=== PATIENT | female | born 1955 | race Caucasian/White ===

== ENCOUNTER 2023-03-19 10:15 | Outpatient (OUT) | payer MEDICARE, OTHER, SELFPAY ==
[2023-03-19 10:36] LABS: Basophils Percent Auto 0.4 % (0.2-2.0); Eosinophils Absolute Auto 0.1 10^3/uL (0.0-0.7); Eosinophils Percent Auto 1.3 % (0.9-7.0); Hematocrit 39.8 % (36.0-48.0); Hemoglobin 13.2 g/dL (12.0-16.0); Immature Granulocytes Abs Auto 0.01 10^3/uL (0.00-0.03); Immature Granulocytes Pct Auto 0.2 % (0.0-0.5); Lymphocytes Absolute Auto 1.3 10^3/uL (1.2-3.8); Lymphocytes Percent Auto 24.6 % (20.5-60.0); Mean Corpuscular HGB Conc 33.2 g/dL (29.9-35.2); Mean Corpuscular Hemoglobin 29.9 pg (26.7-34.0); Mean Corpuscular Volume 90.2 fL (81.0-99.0); Monocytes Absolute Auto 0.5 10^3/uL (0.3-0.8); Monocytes Percent Auto 8.5 % (1.7-12.0); Neutrophils Absolute Auto 3.5 10^3/uL (1.4-6.5); Platelet Count 229 10^3/uL (150-450); Red Blood Count 4.41 10^6/uL (4.20-5.40); White Blood Count 5.4 10^3/uL (4.0-11.0)
[2023-03-19 11:19] LABS: Alanine Aminotransferase 27 U/L (14-59); Anion Gap 11.8; BUN Creatinine Ratio 31.7; Calcium 9.4 mg/dL (8.5-10.1); Carbon Dioxide 29.2 mmol/L (21.0-32.0); Chloride 102 mmol/L (98-107); Chol HDL Ratio 2.8; Cholesterol 184 mg/dL (<=200); Estimated GFR (African America >60 (>=60); Estimated GFR (Non-African Ame >60 (>=60); Glucose 96 mg/dL (74-106); HDL Cholesterol 66 mg/dL (40-60); Sodium 139 mmol/L (136-145); Triglycerides 91 mg/dL (<=150); VLDL CHOLESTEROL 18.2 mg/dL
== END 2023-03-19 10:16 ==
LOC: LAB 10:20
PROVIDERS: PCP Internal Medicine; Visit Provider Internal Medicine
DX: E78.5 Hyperlipidemia, unspecified (principal); I10 Essential (primary) hypertension; Z79.899 Other long term (current) drug therapy
CPT/HCPCS: 36415; 80048; 80061; 84460; 85025

== ENCOUNTER 2024-03-20 11:03 | Outpatient (OUT) | payer MEDICARE, OTHER, SELFPAY ==
[2024-03-20 11:45] LABS: Basophils Percent Auto 0.7 % (0.2-2.0); Eosinophils Absolute Auto 0.1 10^3/uL (0.0-0.7); Eosinophils Percent Auto 0.9 % (0.9-7.0); Hematocrit 37.8 % (36.0-48.0); Hemoglobin 12.3 g/dL (12.0-16.0); Immature Granulocytes Abs Auto 0.01 10^3/uL (0.00-0.03); Immature Granulocytes Pct Auto 0.2 % (0.0-0.5); Lymphocytes Absolute Auto 1.6 10^3/uL (1.2-3.8); Lymphocytes Percent Auto 27.4 % (20.5-60.0); Mean Corpuscular HGB Conc 32.5 g/dL (29.9-35.2); Mean Corpuscular Hemoglobin 28.9 pg (26.7-34.0); Mean Corpuscular Volume 88.7 fL (81.0-99.0); Mean Platelet Volume 9.4 fL (9.5-13.5); Monocytes Absolute Auto 0.5 10^3/uL (0.3-0.8); Monocytes Percent Auto 7.9 % (1.7-12.0); Neutrophils Absolute Auto 3.6 10^3/uL (1.4-6.5); Neutrophils Percent Auto 62.9 % (43.0-75.0); Platelet Count 242 10^3/uL (150-450); Red Blood Count 4.26 10^6/uL (4.20-5.40); Red Cell Distribution Width 13.2 % (11.0-15.0); White Blood Count 5.7 10^3/uL (4.0-11.0)
[2024-03-20 12:16] LABS: Alanine Aminotransferase 22 U/L (14-59); Albumin Globulin Ratio 1.2; Albumin Level 3.9 g/dL (3.4-5.0); Alkaline Phosphatase 57 U/L (46-116); Anion Gap 14.5; Aspartate Amino Transferase 22 U/L (15-37); BUN Creatinine Ratio 21.7; Bilirubin Total 0.7 mg/dL (0.2-1.0); Carbon Dioxide 27.3 mmol/L (21.0-32.0); Chloride 104 mmol/L (98-107); Chol HDL Ratio 3.1; Cholesterol 209 mg/dL (<=200); Estimated GFR (African America >60 (>=60); Estimated GFR (Non-African Ame >60 (>=60); Globulin 3.3 g/dL; Glucose 91 mg/dL (74-106); HDL Cholesterol 67 mg/dL (40-60); Potassium 3.8 mmol/L (3.5-5.1); Sodium 142 mmol/L (136-145); Total Protein 7.2 g/dL (6.4-8.2); Triglycerides 66 mg/dL (<=150); VLDL CHOLESTEROL 13.2 mg/dL
== END 2024-03-20 11:04 | disposition home or self-care (01) ==
LOC: LAB 11:06
PROVIDERS: PCP Internal Medicine; Visit Provider Internal Medicine
DX: E78.00 Pure hypercholesterolemia, unspecified (principal); I10 Essential (primary) hypertension; I87.2 Venous insufficiency (chronic) (peripheral)
CPT/HCPCS: 36415; 80053; 80061; 85025

== ENCOUNTER 2025-03-23 09:17 | Outpatient (OUT) | payer MEDICARE, OTHER, SELFPAY ==
--- OUTSIDE RECORDS SUMMARY | 2025-03-23 09:27 | XMS_ITS | Clinical Summary ---
Author Organization [facility] Address [address] [place] [address] Care Team Providers Care Register Of Deeds Name Role Phone Unavailable Primary Care Provider Unavailabl e Social History Tobacco Use Types Packs/Day Years Used Date Smoking Tobacco: Never Assessed Comments Unknown Sex and Gender Information Value Date Recorded Sex Assigned at Not on file Legal Sex Female 6:52 PM EDT Gender Identity Female 12/13/2022 6:52 PM EDT Sexual Orientation Not on file Last Filed Vital Signs Vital Sign Reading Time Taken Comments Blood Pressure 124/80 10/15/2020 12:00 PM EST Pulse - - Temperature - - Respiratory Rate - - Oxygen Saturation - - Inhaled Oxygen Concentration - - Weight 68 kg (150 lb) 10/15/2020 12:00 PM EST Height 167.6 cm (5' 6 ) 10/15/2020 12:00 PM EST Body Mass Index 24.21 10/15/2020 12:00 PM EST Plan of Treatment Not on file Insurance MEDICARE
--- OUTSIDE RECORDS SUMMARY | 2025-03-23 09:43 | XMS_ITS | CCD ---
Author Organization [facility] Team Providers Care Hadoop Application Developer Name Role Phone JAMES, DR KENNEY Primary Care Unavailable BALL, DR KENNEY Admitting Unavailable BALL, DR KENNEY Attending Unavailable BALL, DR KENNEY Consulting Unavailable BALL, DR KENNEY Primary Care Unavailable BALL, DR KENNEY Admitting Unavailable BALL, DR KENNEY Attending Unavailable BALL, DR KENNEY Consulting Unavailable ROSS, RAULITO Consulting Unavailable ROSS, RAULITO Admitting Unavailable BALL, DR KENNEY Primary Care Unavailable ROSS, RAULITO Attending Unavailable STUART, DR HUNTER Attending Unavailable STUART, DR HUNTER Admitting Unavailable BEERMAN, DR HUNTER Consulting Unavailable BALL, DR KENNEY Primary Care Unavailable CHUNCURTIS Consulting Unavailable STUART, DR HUNTER Admitting Unavailable BEERIAN, DR HUNTER Attending Unavailable BEERMAN, DR HUNTER Consulting Unavailable BALL, DR KENNEY Primary Care Unavailable BALL, DR KENNEY Admitting Unavailable BALL, DR KENNEY Attending Unavailable BALL, DR KENNEY Consulting Unavailable BALL, DR KENNEY Primary Care Unavailable DO Joel Musa Primary Care Provider DO Joel Musa Referring Provider Self, Referral Attending Provider Unavailable Joel Musa Unavailable NILL, Kirk R Referring Unavailable NILL, Kirk Cox Attending Unavailable NILL, Kirk Cox Admitting Unavailable NILL, Kirk Cox Attending Unavailable JOEL MUSA Referring Unavailable JOEL MUSA Primary Care Physician NILL, Kirk R Admitting Unavailable NILL, Kirk R Referring Unavailable NILL, Kirk R Attending Unavailable NILL, Kirk R Admitting Unavailable NILL, Kirk R Referring Unavailable NILL, Kirk Cox Attending Unavailable NILL, Kirk oCx Attending Unavailable Joel Musa DO Primary Care Provider Joel Musa DO Referring Provider Self, Referral Attending Provider Unavailable Joel Musa Referring Unavailable Joel Musa Primary Care Unavailable Self, Referral Attending Unavailable Self, Referral Admitting Unavailable Allergies Allergy Classification Reported Allergen(s) Allergy Type Date of Onset Reaction(s) Facility (1 source) patient allergy list reviewed by nurse or physicia Propensity to adverse reactions Comment:[employer] Other (2 sources) No Known Medication Allergies; Translations: [No Known Medication Allergies] Propensity to adverse reactions (disorder) [facility] Repository Medications Current Medications Medication Drug Class(es) Dates Sig (Normalized) Sig (Original) azithromycin 250 mg oral tablet (1 source) Macrolide Antimicrobial Start: 08-04-2024 Azithromycin 250 mg tablet Active 250 MG PO .COMPLEX 6 August 04, 2024 1:00am 2 tabs on first day followed by 1 tab on days 2-5 Calcium (3 sources) Phosphate Binder, Calcium Start: 10-29-2024 take 1 tablet by mouth once daily Calcium 600 D Tab 1 tab(s), Oral, Daily, Refill(s) 0, Prophylaxis Start Date: 10/29/24 Status: Ordered Compression stockings, 30-40mmHg, thigh 30-40mmHg (3 sources) Compression stockings, 30-40mmHg, thigh 30-40mmHg externally daily as directed Active lisinopril 5 mg oral tablet (16 sources) Angiotensin Converting Enzyme Inhibitor Start: 05-09-2024 take 1 tablet by mouth once daily Lisinopril 5 mg tablet Active 0 .ROUTE .COMPLEX May 09, 2024 8:56am TAKE 1 TABLET BY MOUTH EVERY DAY Start: 08-16-2020 End: 05-09-2024 take 1 tablet by mouth once daily Lisinopril 5 mg tablet Discontinued 5 MG PO Daily March 20, 2024 10:16am May 09, 2024 8:56am pravastatin sodium 40 mg oral tablet (16 sources) HMG-CoA Reductase Inhibitor Start: 04-28-2024 take 1 tablet by mouth once daily in the evening Pravastatin 40 mg tablet Active 0 .ROUTE .COMPLEX April 28, 2024 9:51am TAKE 1 TABLET BY MOUTH EVERY DAY IN THE EVENING Start: 08-16-2020 End: 04-28-2024 take 1 tablet by mouth once daily Pravastatin 40 mg tablet Discontinued 40 MG PO Daily March 20, 2024 10:17am April 28, 2024 9:51am traMADol hydrochloride 50 mg oral tablet (1 source) Opioid Agonist Start: 11-10-2024 End: 11-15-2024 traMADOL 50 mg Tab 50 mg = 1 tab(s), Oral, q6hr, PRN Pain, not to exceed 400 mg/day take with food or milk, # 10 tab(s), Refills(s) 0, Pharmacy: [facility]/pharmacy #[id number], 167, cm, 10/29/24 9:37:00 EST, Height/Length Dosing, 69, kg, 10/29/24 9:37:00 EST, Weight Dosing Start Date: 11/10/24 Stop Date: 11/15/24 Status: Ordered Vitamin C 500 mg Tab (3 sources) Start: 10-29-2024 take 1 tablet by mouth once daily Vitamin C 500 mg Tab 500 mg = 1 tab(s), Oral, Daily, Refills(s) 0, Prophylaxis Start Date: 10/29/24 Status: Ordered Completed/Discontinued Medications Medication Drug Class(es) Dates Sig (Normalized) Sig (Original) amoxicillin 875 mg / clavulanate 125 mg oral tablet (4 sources) Penicillin-class Antibacterial Start: 10-16-2020 End: 03-20-2024 take 1 tablet by mouth twice daily Amoxicillin-Pot Clavulanate 875-125 mg tablet Discontinued 1 TAB PO Twice daily October 16, 2020 1:00am March 20, 2024 10:16am Problems Active Problems Problem Classification Problem Date Documented Date Episodic/Chronic Anal and rectal conditions (4 sources) Anal polyp 08-18-2020 Episodic Diseases of white blood cells (1 source) Leukopenia; Translations: [Leukocytopenia, unspecified] Onset: 04-26-2015 Chronic Disorders of lipid metabolism (20 sources) Familial hypercholesterolemia; Translations: [Hyperlipidemia, unspecified] Onset: 10-01-1959 Chronic E Codes: Natural/environment (1 source) Cat bite - wound; Translations: [Bitten by cat, initial encounter] 10-16-2020 Episodic Essential hypertension (20 sources) Essential (primary) hypertension; Translations: [Essential hypertension] Onset: 07-22-2014 Chronic Headache; including migraine (5 sources) Migraine without aura, not refractory ; Translations: [Migraine, unspecified, not intractable, without status migrainosus] 09-13-2020 Chronic Hemorrhoids (5 sources) Residual hemorrhoidal skin tags; Translations: [Residual hemorrhoidal skin tags] 08-16-2020 Episodic Immunizations and screening for infectious disease (5 sources) Encounter for immunization; Translations: [Vaccination given] Onset: 08-02-2021 Episodic Menopausal disorders (5 sources) Primary ovarian failure; Translations: [Other primary ovarian failure] 08-16-2020 Chronic Osteoarthritis (2 sources) Osteoarthritis of knee; Translations: [Unilateral primary osteoarthritis, unspecified knee] Onset: 01-21-2015 Chronic Other aftercare (2 sources) Other watermelon inspector (current) drug therapy; Translations: [OTH BODY BUILDER APPRENTICE CURRENT DRUG THERAPY] Onset: 02-22-2022 Episodic Other aftercare (1 source) Long-term current use of drug therapy; Translations: [Other residential (current) drug therapy] Episodic Other and unspecified benign neoplasm (3 sources) Lipoma of skin and subcutaneous tissue of trunk; Translations: [Benign lipomatous neoplasm of skin and subcutaneous tissue of trunk] Onset: 10-28-2024 Episodic Other and unspecified benign neoplasm (4 sources) Lipoma of back 10-13-2020 Episodic Other diseases of veins and lymphatics (9 sources) Peripheral venous insufficiency; Translations: [Venous insufficiency (chronic) (peripheral)] Resolved: 02-03-2020 08-16-2020 Episodic Other diseases of veins and lymphatics (2 sources) Venous insufficiency (chronic) (peripheral); Translations: [Venous (peripheral) insufficiency, unspecified] Episodic Other diseases of veins and lymphatics (3 sources) Venous insufficiency of leg; Translations: [Venous insufficiency (chronic) (peripheral)] 03-18-2024 Episodic Other injuries and conditions due to external causes (1 source) History of fall; Translations: [History of falling] Episodic Other nervous system disorders (1 source) Hereditary peripheral neuropathy; Translations: [Unspecified hereditary and idiopathic peripheral neuropathy] Onset: 07-27-2015 Chronic Other nutritional; endocrine; and metabolic disorders (1 source) Overweight; Translations: [Overweight] Episodic Other screening for suspected conditions (not mental disorders or infectious disease) (10 sources) Encounter for screening for malignant neoplasm of colon; Translations: [Patient encounter status] Onset: 03-23-2021 Episodic Other skin disorders (4 sources) Skin tag 10-13-2020 Episodic Residual codes; unclassified (1 source) Family history of ischemic heart disease; Translations: [Family history of ischemic heart disease and other diseases of the circulatory system] Episodic Spondylosis; intervertebral disc disorders; other back problems (6 sources) Cervical spondylosis without myelopathy; Translations: [Cervical Spondylosis Without Myelopathy] Onset: 06-16-2015 08-16-2020 Chronic Substance-related disorders (5 sources) Tobacco dependence in remission; Translations: [Nicotine dependence, cigarettes, in remission] Chronic Unclassified (4 sources) CONTACT W/AND (SUSP) EXPOS COVID-19; Translations: [CONTACT W/AND (SUSP) EXPOS COVID-19] Onset: 03-25-2021 Varicose veins of lower extremity (8 sources) Pain co-occurrent and due to varicose veins of bilateral legs; Translations: [Varicose veins of bilateral lower extremities with pain] 08-16-2020 Episodic Viral infection (2 sources) COVID-19; Translations: [Disease caused by 2019-nCoV] Onset: 10-04-2021 Past or Other Problems Problem Classification Problem Date Documented Date Episodic/Chronic Acute bronchitis (1 source) Acute bronchitis; Translations: [Acute bronchitis, unspecified] Onset: 12-15-2015 Episodic Biliary tract disease (1 source) Disorder of gallbladder; Translations: [Other specified disorder of gallbladder] Onset: 05-26-2013 Episodic Conditions associated with dizziness or vertigo (1 source) Benign paroxysmal positional vertigo; Translations: [Benign paroxysmal positional vertigo] Onset: 03-25-2019 Episodic Malaise and fatigue (2 sources) Malaise and fatigue; Translations: [Other malaise and fatigue] Onset: 01-20-2014 Episodic Open wounds of extremities (2 sources) Open bite wound of skin; Translations: [Open bite of unspecified finger without damage to nail, subsequent encounter] Resolved: 02-10-2021 Episodic Other and unspecified benign neoplasm (1 source) Personal history of colonic polyps; Translations: [PERSONAL HISTORY OF COLONIC POLYPS] Onset: 03-28-2021 Episodic Other liver diseases (1 source) Elevated levels of transaminase & lactic acid dehydrogenase; Translations: [Nonspecific elevation of levels of transaminase or lactic acid dehydrogenase (LDH)] Onset: 04-26-2015 Episodic Other nervous system disorders (1 source) Altered sensation of skin; Translations: [Disturbance of skin sensation] Onset: 01-20-2014 Episodic Residual codes; unclassified (1 source) Family history of breast cancer; Translations: [Family history of malignant neoplasm of breast] Onset: 07-22-2014 Episodic Screening and history of mental health and substance abuse codes (1 source) Personal history of nicotine dependence; Translations: [PERSONAL HISTORY OF NICOTINE DEPEND] Onset: 03-28-2021 Episodic Spondylosis; intervertebral disc disorders; other back problems (1 source) Neck pain; Translations: [Cervicalgia] Onset: 06-16-2015 Episodic Sprains and strains (1 source) Strain of muscle and tendon of back wall of thorax, initial encounter; Translations: [Strain of muscle and tendon of back wall of thorax, initial encounter] Onset: 03-25-2019 Resolved: 02-03-2020 Episodic Unclassified (1 source) CONTACT W/AND (SUSP) EXPOS COVID-19; Translations: [CONTACT W/AND (SUSP) EXPOS COVID-19] Onset: 09-28-2021 Unclassified (1 source) Long-term current use of drug therapy; Translations: [Long-term (current) use of other medications] Onset: 10-01-1959 Results Test Name Value Interpretation Reference Range Facility MM screening mammo BI w/CADo n 12-11-2024 MM screening mammo BI w/CAD [facility] [address] [place] [address] Mammography Report Signed Patient: Candido Hdez MR#: [id number] : 1955 Acct:[id number] Age/Sex: 69 / F Adm Date: 12/11/24 Loc: [place] Room: Type: [facility] Attending Dr: Referral Self Ordering Provider: SELF,REFERRAL Date of Service: 12/11/24 Procedure(s): MM screening mammo BI w/CAD Accession Number(s): ([id number]) MM/MM screening mammo BI w/CAD: SCREENING Copies to: DO WILNER Escoto,REFERRAL CLINICAL DATA: Screening for malignancy. SCREENING MAMMOGRAM - FULL FIELD DIGITAL WITH TOMOSYNTHESIS AND CAD COMPARISON:Mammogram s dating back to 2020. Tomosynthesis craniocaudal and mediolateral oblique views of both breasts were obtained using low- dose digital technique. This examination was reviewed with the aid of CAD. FINDINGS: The breast tissue is composed of scattered fibroglandular densities. There are no dominant masses, typically malignant calcifications or architectural distortion. There has been no significant interval change. MM/MM screening mammo BI w/CAD IMPRESSION: NO MAMMOGRAPHIC EVIDENCE OF MALIGNANCY. ROUTINE FOLLOW-UP IS RECOMMENDED IN ONE YEAR. RESULT CODE: 1 Negative DENSITY CODE: 2 (approximately 25-50% glandular) There are scattered areas of fibroglandular density. FOLLOW UP: 1YR The false-negative rate of mammography is approximately 10-percent. Management of a palpable abnormality must be based on clinical grounds. Patient was entered into a reminder system with a target due date for the next mammogram. Impression dictated by: Marco Szymanski Jr..OJessie12/11/2024 3:27 PM Dictation Location: [facility] Dictated By: Cole Cedillo Jr, DO 12/11/241526 Signed By: 12/11/24 152 Normal [facility] Mammography reportOrdered By : Cole Cedillo on 12-11-2024 Diagnostic imaging study [facility] [address] [place] [address] Mammography Report Signed Patient: Candido Hdez MR#: [id number] : 1955 Acct:[id number] Age/Sex: 69 / F Adm Date: 5 Loc: [place] Room: Type: [facility] Attending Dr: Referral Self Ordering Provider: SELF,REFERRAL Date of Service: 12/11/24 Procedure(s): MM screening mammo BI w/CAD Accession Number(s): ([id number]) MM/MM screening mammo BI w/CAD: SCREENING Copies to: Joel Musa DO SELF,REFERRAL ~ CLINICAL DATA: Screening for malignancy. SCREENING MAMMOGRAM - FULL FIELD DIGITAL WITH TOMOSYNTHESIS AND CAD COMPARISON:Mammogram s dating back to 2020. Tomosynthesis craniocaudal and mediolateral oblique views of both breasts were obtained using low-dose digital technique. This examination was reviewed with the aid of CAD. FINDINGS: The breast tissue is composed of scattered fibroglandular densities. There are no dominant masses, typically malignant calcifications or architectural distortion. There has been no significant interval change. MM/MM screening mammo BI w/CAD IMPRESSION: NO MAMMOGRAPHIC EVIDENCE OF MALIGNANCY. ROUTINE FOLLOW-UP IS RECOMMENDED IN ONE YEAR. RESULT CODE: 1 Negative DENSITY CODE: 2 (approximately 25-50% glandular) There are scattered areas of fibroglandular density. FOLLOW UP: 1YR The false-negative rate of mammography is approximately 10-percent. Management of a palpable abnormality must be based on clinical grounds. Patient was entered into a reminder system with a target due date for the next mammogram. Impression dictated by: Cole Cedillo Jr., DJessieOJessie12/11/2024 3:27 PM Dictation Location: [facility] Dictated By: Cole Cedillo Jr, DO 12/11/24 152 Signed By: 12/11/24 152 [place] Ambulatory Visit Summaryon 0 11-19-2024 Ambulatory Visit Summary Ambulatory Visit Summary CANDIDO HDEZ :1955 Visit Date:11/19/2024 Ambulatory Visit Instructions Your Diagnosis Lipoma of back Your Care Team Attending Physician - Kirk CHAVEZ MD Primary Care Physician - JOEL MUSA DO This Is Your Medications List Contact prescribing physician if questions or concerns ascorbic acid (Vitamin C 500 mg Tab) calcium-vitamin D (Calcium 600 D Tab) lisinopril (lisinopril 5 mg Tab) pravastatin (pravastatin 40 mg Tab) Procedures Performed Excision of lipoma of back (11/10/2024), Polyp of anal verge (10/04/2020), Colonoscopy (04/05/2016), Appendectomy (1959), Endovenous laser ablation of varicose vein, LEXI BSO - Total abdominal hysterectomy and bilateral salpingo-oophorectom y. What to do next You Need to Schedule the Following Appointments Follow Up with GILLES VERNON, RONNI Egan When: Only if needed Where: [address] [place] [address]- Medications What How Much When Instructions Unchanged ascorbic acid (Vitamin C 500 mg Tab) 1 Tablets By Mouth Every day Contact prescribing physician if questions or concerns Unchanged calcium-vitamin D (Calcium 600 D Tab) 1 Tablets By Mouth Every day Contact prescribing physician if questions or concerns Unchanged lisinopril (lisinopril 5 mg Tab) 1 Tablets By Mouth Every day Contact prescribing physician if questions or concerns Unchanged pravastatin (pravastatin 40 mg Tab) 1 Tablets By Mouth Every day Contact prescribing physician if questions or concerns Allergies No Known Allergies No Known Medication Allergies Problems Ongoing - Any problem that you are currently receiving treatment for. Anal polyp Anorectal skin tags Chronic venous insufficiency Estrogen deficiency External hemorrhoids Hypercholesteremia Hyperlipidemia type II Hypertension Lipoma of back Spondylosis, cervical Varicose veins without complication Historical - Any problem that you are no longer receiving treatment for. HTN (hypertension) Migraine headache Patient Survey You may receive a survey via text or e-mail asking about your office visit. Please share your experience with us by completing your survey. We appreciate your feedback and thank you for choosing us for your care. Normal [facility] General Surgery Office/Clini c Noteon 11-19-2024 General Surgery Office/Clinic Note General Surgery Office/Clinic Note Chief Complaint post operative follow up HPI Staff 9 day post operative follow up post excisional biopsy right upper back lipoma. Reports minimal intermittent discomfort, intermittent use of Ibuprofen. Denies bleeding or drainage. History of Present Illness 9 days s/p excisional biopsy of right upper back lipoma, pathology consistent with benign lipoma; doing well, denies pain or drainage, no pain medications. Review of Systems PHQ Score Initial Depression Screen Score: 0 SCORE ROS - Provider Constitutional: no fever, no sweats, no weight loss. Eyes: no glasses, no blurred vision, no visual loss. ENMT: no dentures, no hoarseness, no swallowing difficulties, no hearing loss, no ear infection(s), no nose bleeds. Cardiovascular: normal blood pressure, no chest pain, regular heartbeat, no heart murmur. Respiratory: no shortness of breath, no cough, no asthma, no wheezing. Gastrointestinal: no nausea, no vomiting, no diarrhea, no constipation, no blood in stool, no change in bowel habits, no abdominal pain, no hepatitis. Genitourinary: no kidney stones, no urine infection, no dysuria. Musculoskeletal: no pain, no weakness. Skin: no changing moles, no rash, no skin lumps. Neurologic: no seizures, no epilepsy, no headache. Psychiatric: no emotional or psychiatric problem. Heme/Lymph: no bleeding problems, no anemia, no blood clots, no transfusions. Allergy/Immunologic: no swollen lymph nodes/glands, no IV drug abuse. Other: Additional ROS info: Except as noted in the above Review of Systems and in the History of Present Illness, all other systems have been reviewed and are negative or noncontributory. Physical Exam skin: incision healing well, glue/steri strips intact; no drainage; no fluctuance or ecchymosis; no erythema. Assessment/Plan 1. Lipoma of back (D17.1: Benign lipomatous neoplasm of skin and subcutaneous tissue of trunk) doing well; call with problems/questions. Follow-up With When Contact Information GILLES VERNON, Kirk Cox, RONNI Only if needed [address] [place] [address]- Additional Instructions: Problem List/Past Medical History Ongoing Anal polyp Anorectal skin tags Chronic venous insufficiency Estrogen deficiency External hemorrhoids Hypercholesteremia Hyperlipidemia type II Hypertension Lipoma of back Spondylosis, cervical Varicose veins without complication Historical HTN (hypertension) Migraine headache Procedure/Surgical History Excision of lipoma of back (11/10/2024), Polyp of anal verge (10/04/2020), Colonoscopy (04/05/2016), Appendectomy (1959), Endovenous laser ablation of varicose vein, LEXI BSO - Total abdominal hysterectomy and bilateral salpingo-oophorectom y. Medications Calcium 600 D Tab, 1 tab(s), Oral, Daily lisinopril 5 mg Tab, 5 mg= 1 tab(s), Oral, Daily pravastatin 40 mg Tab, 40 mg= 1 tab(s), Oral, Daily Vitamin C 500 mg Tab, 500 mg= 1 tab(s), Oral, Daily Allergies No Known Allergies No Known Medication Allergies Social History Alcohol - Low Risk, 10/04/2020 Current. Wine. 1-2 times per month., 10/23/2024 Substance Abuse - Denies Substance Abuse, 08/17/2020 Never., 10/23/2024 Tobacco - Denies Tobacco Use, 09/13/2020 Former smoker, quit more than 30 days ago Tobacco Use:. Never Smokeless Tobacco Use:. Cigarettes, 11/19/2024 Family History Hypertension: Father. Primary malignant neoplasm of female breast: Mother. Stroke: Mother. Immunizations Vaccine Date Status influenza virus vaccine, inactivated 09/04/2024 Recorded SARS-CoV-2 (COVID-19) mRNA BNT-162b2 vax 08/02/2021 Recorded SARS-CoV-2 (COVID-19) mRNA BNT-162b2 vax 12/21/2020 Recorded SARS-CoV-2 (COVID-19) mRNA BNT-162b2 vax 11/29/2020 Recorded Normal [facility] Comment on above: Result Comment: Elec tronically Signed By: GILLES VERNON, Kirk Cox\.br\Date and Time Signed: 11/19/24 14:33 EST Surgical Pathology Reporton 11-12-2024 Surgical Pathology Report [facility] [address] [place] [address]- Surgical Pathology Report Collected Date/Time: 11/10/2024 08:18 EST Pathologist: Babatunde VERNON PhD, Henrietta Arango Received Date/Time: 11/10/2024 10:21 EST GILLES VERNON, Kirk CHAVEZ MD, Kirk Paul Surgical Pathology Report - 11/12/2024 10:32 EST - Auth (Verified) Final Diagnosis RIGHT UPPER BACK LIPOMA, EXCISION: - MATURE ADIPOSE TISSUE CONSISTENT WITH LIPOMA. (Electronic Signature) Henrietta Fine MD PhD 11/12/2024 10:32 Clinical Information Right upper back lipoma Pre-Op Diagnosis: Right upper back lipoma Procedure: Right upper back lipoma excision Post-Op Diagnosis: Enlarging lipoma right upper back Specimen(s) Received Right upper back lipoma Gross Description Received in formalin labeled with patient name, number, and right upper back lipoma is a lobulated light yellow adipose tissue measuring 8 x 5 x 4 cm. Cross-section reveals a focal granular adipose tissue. Crusher And Blender Operator sections are submitted in three cassettes. () [facility] Microscopic Description Microscopic examination performed unless gross only specified. This report was transcribed using voice recognition technology and might contain unintended computerized low pressure boiler operator errors. Normal [facility] Comment on above: Performed By: #### [id number] #### [facility] Laboratory [address] [place] [id number] Main OR Intraoperative Recor don 11-11-2024 Main OR Intraoperative Record Main OR Intraoperative Record IntraOp Document Type FT Summary Primary Physician: Kirk CHAVEZ MD Finalized Date/Time: 11/11/24 14:42:51 Pt. Name: CANDIDO HDEZ Margarita/Sex: 1955 [address] [facility] Rec #: [id number] Physician: Kirk CHAVEZ MD [facility] #: [id number] Pt. Type: A Room/Bed: [place] [address] Admit/Disch: 11/10/24 06:02:04 - 11/10/24 10:20:00 Institution: Case Times FT Entry 1 Patient Times In Room 11/10/24 07:51:00 Out Room 11/10/24 08:49:00 Procedure Times Start 11/10/24 08:11:00 Stop 11/10/24 08:43:00 Anesthesia Times Start 11/10/24 07:51:00 Stop 11/10/24 08:49:00 Last Modified By: Lindsay Larkin RN 11/10/24 08:48:59 General Comments: 11/11/24 Chart opened to review and send charges [facility]FA Case Attendance FT Entry 1 Entry 2 Entry 3 Case Attendee Barron TIDWELL, Wilver CHAVEZ MD, Kirk Cannon CST, Claudia Way Role Performed Anesthesiologist Surgeon - Primary PHARMACY MESSENGER/SA Seat Nailer Time In 11/10/24 07:51:00 11/10/24 07:51:00 11/10/24 07:51:00 Time Out 11/10/24 08:49:00 11/10/24 08:49:00 11/10/24 08:49:00 Procedure CYST LESION REMOVAL CYST LESION REMOVAL CYST LESION REMOVAL GENERAL ANES(.) GENERAL ANES(.) GENERAL ANES(.) Comments DR. CAPPS SUPERVISING Last Modified By: Chaya RN, Lindsay Larkin RN, Lindsay Oconnor RN 11/10/24 08:49:01 11/10/24 08:49:01 11/10/24 08:49:01 Entry 4 Entry 5 Case Attendee Chaya GUPTA, Jade Joy Role Performed Detective Sergeant - Primary Scrub - Primary Time In 11/10/24 07:51:00 11/10/24 07:51:00 Time Out 11/10/24 08:49:00 11/10/24 08:49:00 Procedure CYST LESION REMOVAL CYST LESION REMOVAL GENERAL ANES(.) GENERAL ANES(.) Comments Last Modified By: Chaya RN, Lindsay Oconnor RN 11/10/24 08:49:01 11/10/24 08:49:01 Perioperative Protocols FT Pre-Care Text: Implements protective measures prior to operative or invasive procedure, confirms identity before the operative or invasive procedure, verifies operative procedure, surgical site, and laterality Entry 1 Procedure(s) CYST LESION REMOVAL Patient Identity Birthday, ID Band GENERAL ANES(.) Verified (select at Check, Patient least 2): Participation Consents / H and P Anesthesia Consent, Operative Site Present Verified H&P, Surgery/Procedure Marking Verified Consent, Transfusion Consent Surgical Site Yes Laterality Verified Yes Verified Procedure Verified Yes Correct Patient Yes Position Verified Availability Equipment, Medication Prep Dry n/a Verified (If Applicable) PreOp Antibiotic Yes Time Out Wilver Zamarripa, Given Participants Kirk CHAVEZ MD, Roth CST, Liane E, Lindsay Larkin RN, Dellinger, Sydney A Time Out Complete 11/10/24 08:10:00 Outcomes Met? Yes Last Modified By: Lindsay Larkin RN 11/10/24 08:13:16 Post-Care Text: The patient is free from signs and symptoms of injury caused by extraneous objects Allergy Information FT Pre-Care Text: Verifies allergies Entry 1 Allergies Reviewed? Yes Allergies Reviewed Self/Patient With Outcomes Met? Yes Last Modified By: Lindsay Larkin RN 11/10/24 08:13:23 Post-Care Text: The patient received appropriate medication(s) safely administered during the perioperative period Surgical Procedures FT Entry 1 Procedure Description Procedure CYST LESION REMOVAL Modifiers . GENERAL ANES Surgeon Description EXCISIONAL BIOPSY LIPOMA RIGHT UPPER BACK UNDER ANESTHESIA Primary Procedure Yes Primary Surgeon Kirk CHAVEZ MD Start 11/10/24 08:11:00 Stop 11/10/24 08:43:00 Anesthesia Type General Surgical Service General Wound Class 1 - Clean Last Modified By: Lindsay Larkin RN 11/10/24 08:49:00 General Case Data FT Pre-Care Text: Classifies surgical wound, implements aseptic technique, initiates traffic control Entry 1 Case Information OR OR 2 FT Case Level Level 2 Wound Class 1 - Clean Specialty General ASA Class 2 Preop Diagnosis LIPOMA RIGHT UPPER BACK Postop Same As Preop Yes Postop Diagnosis LIPOMA RIGHT UPPER BACK Outcomes Met? Yes Last Modified By: Lindsay Larkin RN 11/10/24 08:26:11 Post-Care Text: The patient is free from signs and symptoms of infection Skin Assessment (Pre Procedure) FT Pre-Care Text: Implements protective measures to prevent skin/ tissue injury due to thermal or mechanical sources Evaluates for signs and symptoms of physical injury to skin and tissue Entry 1 Skin Integrity Intact, [place], Warm, & Skin Abnormality Yes Dry Abnormality Location RIGHT UPPER BACK Abnormality Type LIPOMA Outcomes Met? Yes Last Modified By: Lindsay Larkin RN 11/10/24 08:14:16 Post-Care Text: The patient is free from signs and symptoms of injury caused by extraneous objects Patient Positioning FT Pre-Care Text: Identifies physical alterations that require additional precautions for procedure-specific positioning, verifies presence of prosthetics or corrective devices, positions the patient, evaluates the patient for signs (more content not included)... 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 Indications, risks, benefits, and alternatives of proceeding with an excisional biopsy under general anesthesia were explained extensively to the patient including the risks of bleeding, infection, scarring, pain, recurrence, need for further surgery, anesthetic complications. All of her questions were answered and informed consent was obtained. PROCEDURE: The patient was brought to the Operating Room and placed in the supine position. General anesthesia was induced. She was then placed in the left lateral decubitus position and appropriately padded and monitored. She was prepped and draped in the usual sterile fashion. An incision was made over the lipoma in the area of the skin crease in the right upper back and carried down through subcutaneous tissue using sharp dissection as well as electrocautery. Encapsulated lipoma was encountered. It was irregular approximately 5 x 7 cm in dimensions. It was mobilized using electrocautery and sent out to Pathology. The wound was copiously irrigated. There was good hemostasis. The subcutaneous tissue was reapproximated with interrupted 3-0 Monocryl suture. Skin was then closed with a running 4-0 subcuticular Monocryl suture and skin glue. Mastisol and Steri-Strips were also applied as well as a sterile pressure dressing. Sponge and needle counts were correct x2 per nursing personnel. The patient tolerated the procedure well and was placed back in the supine position and sent to the Recovery Room in good condition. Kirk Chavez M.D. FACS ca Dictated: 11/10/2024 [id number] Transcribed: 11/10/2024 cc:Joel Musa D.O. [facility] Comment on above: Result Comment: Elec tronically Signed By: GILLES VERNON, Kirk Cox\.br\Date and Time Signed: 11/11/24 06:54 EST Discharge Instructionson Discharge Instructions Discharge Instructions CANDIDO HDEZ :1955 Visit Date:11/10/2024 Inpatient Discharge Instructions Your Care Team Admitting Physician - Kirk CHAVEZ MD Referring Physician - Kirk CHAVEZ MD Reason for Your Visit LIPOMA Your Diagnosis Acute postoperative pain Lipoma of back Tests Performed Pathology Tissue Exam -- Results Pending -- Please visit your patient portal for your results or contact your primary care physician. This Is Your Medications List ascorbic acid (Vitamin C 500 mg Tab) calcium-vitamin D (Calcium 600 D Tab) lisinopril (lisinopril 5 mg Tab) pravastatin (pravastatin 40 mg Tab) tramadol (traMADOL 50 mg Tab) Procedure History Excision of cyst (11/10/2024), Polyp of anal verge (10/04/2020), Colonoscopy (04/05/2016), Appendectomy (1959), Endovenous laser ablation of varicose vein, ELXI BSO - Total abdominal hysterectomy and bilateral salpingo-oophorectom y. What to do next Instructions From Your Doctor Event Name Event Result Discharge Instructions Freetext may shower tomorrow, remove dressing and leave open to air air; no tub baths for 10 days; no driving while taking the Tramadol; take Aleve or ibuprofen scheduled for first week after surgery. Discharge Activity Arrange for a responsible adult supervision for 24 hours Discharge Restrictions No driving for 24 hrs, Do not operate machinery or tools, Do not make important decisions for 24 hours, Do not drink alcoholic beverages for 24 hours Discharge Diet(s) Regular Call Your Doctor For Persistent or heavy bleeding, Temperature above 101.5 degrees, Redness, swelling, or pus at operative site, Severe pain at the operative site, Persistent vomiting Wound Care Keep incision dry, Remove dressing as instructed Remove Dressing On 1 Discharge Instructions Discharge Instructions New Follow Up Appointments after Discharge Follow Up with Kirk CHAVEZ When: Within 7 to 10 days Comments: Call for any problems. Where: [facility] [address], [address] [address]- Business (1) Medications What How Much When Why Instructions Next Dose New tramadol (traMADOL 50 mg Tab) 1 Tablets By Mouth Every 6 hours as needed for Pain Acute postoperative pain not to exceed 400 mg/ day take with food or milk Pickup at [facility]/pharmacy #[id number] Unchanged ascorbic acid (Vitamin C 500 mg Tab) 1 Tablets By Mouth Every day Unchanged calcium-vitamin D (Calcium 600 D Tab) 1 Tablets By Mouth Every day Unchanged lisinopril (lisinopril 5 mg Tab) 1 Tablets By Mouth Every day Unchanged pravastatin (pravastatin 40 mg Tab) 1 Tablets By Mouth Every day Pharmacy Information [facility]/pharmacy #[id number]: [address], [place] [phone] Test Results No qualifying data available. Allergies No Known Allergies No Known Medication Allergies Problems Ongoing - Any problem that you are currently receiving treatment for. Anal polyp Anorectal skin tags Chronic venous insufficiency Estrogen deficiency External hemorrhoids Hypercholesteremia Hyperlipidemia type II Hypertension Lipoma of back Spondylosis, cervical Varicose veins without complication Historical - Any problem that you are no longer receiving treatment for. HTN (hypertension) Migraine headache Education Materials Common Emergency Awareness Tips IS IT A STROKE? Act FAST and Check for these signs: FACE Does the face look uneven? ARM Does one arm drift down? SPEECH Does their speech sound strange? TIME Call at any sign of stroke Heart Attack Signs Chest discomfort: Most heart attacks involve discomfort in the center of the chest and lasts more than a few minutes, or goes away and comes back. It can feel like uncomfortable pressure, squeezing, fullness or pain. Discomfort in upper body: Symptoms can include pain or discomfort in one or both arms, back, neck, jaw or stomach. Shortness of breath: With or without discomfort. Other signs: Breaking out in a cold sweat, nausea, or lightheaded. Remember, MINUTES DO MATTER. If you experience any of these heart attack warning signs, call to get immediate medical attention! Patient Survey You may receive a survey in the mail asking you about your stay with us. We want to hear from you, please share your experience with us by completing your survey. Thank you for choosing [facility]. [facility] Nomination The DENNISE (Diseases Attacking the Immune SYstem) Award is an international recognition program that honors and celebrates the skillful, compassionate care nurses provide every day. Anyone who experiences or observes amazing care being provided by a nurse is encouraged to submit a nomination. To nominate your nurse, use your smart phone to scan the QR code below. Patient Portal You may access all of your results and other medical record info (more content not included)... Normal [facility] Comment on above: Result Comment: Elec tronically Signed By: Silas GUPTA, All Rogers\.br\Date and Time Signed: 11/10/24 10:11 EST Discharge Instructions Discharge Instructions CANDIDO HDEZ Ken :1955 Visit Date:11/10/2024 Inpatient Discharge Instructions Your Care Team Admitting Physician - Kirk CHAVEZ MD Referring Physician - Kirk CHAVEZ MD Reason for Your Visit LIPOMA Your Diagnosis Acute postoperative pain Lipoma of back Tests Performed Pathology Tissue Exam -- Results Pending -- Please visit your patient portal for your results or contact your primary care physician. This Is Your Medications List ascorbic acid (Vitamin C 500 mg Tab) calcium-vitamin D (Calcium 600 D Tab) lisinopril (lisinopril 5 mg Tab) pravastatin (pravastatin 40 mg Tab) tramadol (traMADOL 50 mg Tab) Procedure History Polyp of anal verge (10/04/2020), Colonoscopy (04/05/2016), Appendectomy (1959), Endovenous laser ablation of varicose vein, LEXI BSO - Total abdominal hysterectomy and bilateral salpingo-oophorectom y. What to do next Instructions From Your Doctor No qualifying data available. New Follow Up Appointments after Discharge Follow Up with Kirk CHAVEZ When: Comments: Call for any problems. Call for followup appointment Where: [facility] [address], [address] [address]- Business (1) Medications What How Much When Why Instructions Next Dose New tramadol (traMADOL 50 mg Tab) 1 Tablets By Mouth Every 6 hours as needed for Pain Acute postoperative pain not to exceed 400 mg/ day take with food or milk Pickup at [facility]/pharmacy #[id number] Unchanged ascorbic acid (Vitamin C 500 mg Tab) 1 Tablets By Mouth Every day Unchanged calcium-vitamin D (Calcium 600 D Tab) 1 Tablets By Mouth Every day Unchanged lisinopril (lisinopril 5 mg Tab) 1 Tablets By Mouth Every day Unchanged pravastatin (pravastatin 40 mg Tab) 1 Tablets By Mouth Every day Pharmacy Information [facility]/pharmacy #[id number]: [address], [place] [phone] Test Results No qualifying data available. Allergies No Known Allergies No Known Medication Allergies Problems Ongoing - Any problem that you are currently receiving treatment for. Anal polyp Anorectal skin tags Chronic venous insufficiency Estrogen deficiency External hemorrhoids Hypercholesteremia Hyperlipidemia type II Hypertension Lipoma of back Spondylosis, cervical Varicose veins without complication Historical - Any problem that you are no longer receiving treatment for. HTN (hypertension) Migraine headache Education Materials Common Emergency Awareness Tips IS IT A STROKE? Act FAST and Check for these signs: FACE Does the face look uneven? ARM Does one arm drift down? SPEECH Does their speech sound strange? TIME Call at any sign of stroke Heart Attack Signs Chest discomfort: Most heart attacks involve discomfort in the center of the chest and lasts more than a few minutes, or goes away and comes back. It can feel like uncomfortable pressure, squeezing, fullness or pain. Discomfort in upper body: Symptoms can include pain or discomfort in one or both arms, back, neck, jaw or stomach. Shortness of breath: With or without discomfort. Other signs: Breaking out in a cold sweat, nausea, or lightheaded. Remember, MINUTES DO MATTER. If you experience any of these heart attack warning signs, call to get immediate medical attention! Patient Survey You may receive a survey in the mail asking you about your stay with us. We want to hear from you, please share your experience with us by completing your survey. Thank you for choosing [facility]. Denn[facility] Nomination The DENNISE (Diseases Attacking the Immune SYstem) Award is an international recognition program that honors and celebrates the skillful, compassionate care nurses provide every day. Anyone who experiences or observes amazing care being provided by a nurse is encouraged to submit a nomination. To nominate your nurse, use your smart phone to scan the QR code below. Patient Portal You may access all of your results and other medical record information on our secure patient portal. If you are not signed up for this yet, please contact [facility] at [phone] to get signed up today. Patient Name: CANDIDO HDEZ I have received this information and my questions have been answered. Patient/Representati ve Name: Patient/Representati ve Signature: Relationship to Patient: Witness Name/Signature: Date: Normal [facility] Comment on above: Result Comment: Elec tronically Signed By: Stephanie GUPTA, Lyudmila Vanegas\.br\Date and Time Signed: 11/10/24 09:06 EST Inpatient Patient Summaryon 11-10-2024 Inpatient Patient Summary Inpatient Patient Summary [address] [address] [facility] Clinical Discharge Instructions PERSON INFORMATION Name: CANDIDO HDEZ PHYSICIANS Admitting Physician: Kirk CHAVEZ MD Attending Physician: Kirk CHAVEZ MD PCP: JOEL MUSA DO Diagnosis: Lipoma of back Comment: PATIENT EDUCATION INFORMATION Instructions: Post Op Patient Instructions - FT (CUSTOM) Medication Leaflets: Follow up: With: Address: When: Kirk CHAVEZ [address] [place] [address], [address], [place] [phone] Business (1) Within 7 to 10 days Comments: Call for any problems. MEDICATION LIST New Medications [facility][id number], [address], [place] [phone], [phone] tramadol (traMADOL 50 mg Tab) 1 Tablets By Mouth every 6 hours as needed Pain. not to exceed 400 mg/day take with food or milk. Refills: 0. Medications to Continue with No Changes Other Medications ascorbic acid (Vitamin C 500 mg Tab) 1 Tablets By Mouth every day. calcium-vitamin D (Calcium 600 D Tab) 1 Tablets By Mouth every day. lisinopril (lisinopril 5 mg Tab) 1 Tablets By Mouth every day. pravastatin (pravastatin 40 mg Tab) 1 Tablets By Mouth every day. Comment: Normal [facility] Main OR PACU I Recordon 11-01 Main OR PACU I Record Main OR PACU I Record PACU Phase I Document Type FT Summary Primary Physician: Kirk CHAVEZ MD Finalized Date/Time: 11/10/24 09:38:58 Pt. Name: CANDIDO HDEZ /Sex: 1955 Female Med Rec #: [id number] Physician: Kirk CHAVEZ MD Financial #: [id number] Pt. Type: A Room/Bed: [place] [address] Admit/Disch: 11/10/24 06:02:04 - Institution: Case Times PACU I FT Pre-Care Text: Identifies barriers to communication and implements measures to provide psychological support Develops individualized plan of care, and ensures continuity of care Maintains patient's dignity and privacy, and maintains patient confidentiality Identifies and reports philosophical, cultural, and spiritual beliefs and values Identifies individual values and wishes concerning care Implements aseptic technique, and administers prescribed antibiotic therapy and immunizing agents as ordered Evaluates postoperative tissue perfusion Implements thermoregulation measures, and monitors body temperature Evaluates postoperative respiratory status Evaluates postoperative cardiac status Evaluates postoperative neurological status Assesses pain control, collaborated in initiating patient-controlled analgesia and implements alternative methods of pain control Verifies allergies, administers prescribed medications and solutions, evaluates response to medications Entry 1 In PACU I 11/10/24 08:50:00 Discharge from PACU 11/10/24 09:20:00 I Outcomes Met? Yes Last Modified By: Miracle Miller I 11/10/24 09:38:42 Post-Care Text: The patient demonstrates knowledge of the expected response to the operative or invasive procedure The patient's care is consistent with the individualized perioperative plan of care The patient's right to privacy is maintained The patient's value system, lifestyle, ethnicity, and culture are considered, respected, and incorporated into the perioperative plan of care The patient participates in decisions affecting his or her perioperative plan of care The patient is free from signs and symptoms of infection The patient has wound/tissue perfusion consistent with or improved from baseline levels established preoperatively The patient is at or returning to normothermia at the conclusion of the immediate postoperative period The patient's respiratory function is consistent with or improved from baseline levels established preoperatively The patient's cardiovascular status is consistent with or improved from baseline levels established preoperatively The patient's cardiovascular status is consistent with or improved from baseline levels established preoperatively The patient demonstrates and/or reports adequate pain control throughout the perioperative period The patient received appropriate medication(s), safely administered during the perioperative period Acuity Level PACU I FT Entry 1 Start Time 11/10/24 08:50:00 Stop Time 11/10/24 09:20:00 Acuity Level Acuity Level I Last Modified By: Miracle Miller I 11/10/24 09:38:53 Finalized By: Miracle Miller I Document Signatures Signed By: Miracle Miller I 11/10/24 09:38 Normal [facility] Main OR PACU II Recordon Main OR PACU II Record Main OR PACU II Record PACU Phase II Document Type FT Summary Primary Physician: Kirk CHAVEZ MD Finalized Date/Time: 11/10/24 10:39:50 Pt. Name: CANDIDO HDEZ Ken Cancino./Sex: 1955 Female Med Rec #: [id number] Physician: Kirk CHAVEZ MD Financial #: [id number] Pt. Type: A Room/Bed: [place] [address] Admit/Disch: 11/10/24 06:02:04 - Institution: Case Times PACU II FT Pre-Care Text: Identifies barriers to communication and implements measures to provide psychological support and determines knowledge level Develops individualized plan of care, and ensures continuity of care Maintains patient's dignity and privacy, and maintains patient confidentiality Identifies and reports philosophical, cultural, and spiritual beliefs and values Identifies individual values and wishes concerning care administers prescribed antibiotic therapy and immunizing agents as ordered, Evaluates postoperative tissue perfusion Implements thermoregulation measures, and monitors body temperature Evaluates postoperative respiratory status Evaluates postoperative cardiac status Evaluates postoperative neurological status Assesses pain control, collaborated in initiating patient-controlled analgesia and implements alternative methods of pain control Verifies allergies, administers prescribed medications and solutions, evaluates response to medications Entry 1 In PACU II 11/10/24 09:20:00 Discharge from PACU 11/10/24 10:20:00 II Outcomes Met? Yes Last Modified By: All Rosen RN 11/10/24 10:39:49 Post-Care Text: The patient demonstrates knowledge of the expected response to the operative or invasive procedure The patient's care is consistent with the individualized perioperative plan of care The patient's right to privacy is maintained The patient's value system, lifestyle, ethnicity, and culture are considered, respected, and incorporated into the perioperative plan of care The patient participates in decisions affecting his or her perioperative plan of care. The patient is free from signs and symptoms of infection The patient has wound/tissue perfusion consistent with or improved from baseline levels established preoperatively The patient is at or returning to normothermia at the conclusion of the immediate postoperative period The patient's respiratory function is consistent with or improved from baseline levels established preoperatively The patient's cardiovascular status is consistent with or improved from baseline levels established preoperatively The patient's neurological status is consistent with or improved from baseline levels established preoperatively The patient demonstrates and/or reports adequate pain control throughout the perioperative period The patient received appropriate medication(s), safely administered during the perioperative period Finalized By: All Rosen RN Document Signatures Signed By: All Rosen RN 11/10/24 10:39 Normal [facility] Main OR Preoperative Recordo n 11-10-2024 Main OR Preoperative Record Main OR Preoperative Record PreOp Document Type FT Summary Primary Physician: Kirk CHAVEZ MD Finalized Date/Time: 11/10/24 08:14:59 Pt. Name: CANDIDO HDEZ Ken /Sex: 1955 Female Med Rec #: [id number] Physician: Kirk CHAVEZ MD Financial #: [id number] Pt. Type: A Room/Bed: [place] [address] Admit/Disch: 11/10/24 06:02:04 - Institution: Case Times PreOp FT Pre-Care Text: Verifies consent for planned procedure, identifies individual values and wishes concerning care, includes family members in perioperative teaching Entry 1 Patient Times. In Pre Surgery 11/10/24 06:05:00 Out Pre Surgery 11/10/24 07:49:00 Outcomes Met? Yes Last Modified By: Lindsay Larkin RN 11/10/24 08:14:58 Post-Care Text: The patient participates in decisions affecting his or her perioperative plan of care Finalized By: Lindsay Larkin RN Document Signatures Signed By: Lindsay Larkin RN 11/10/24 08:14 Normal [facility] [facility] Operative Reporton Operative Report Operative Report SURGERY DATE: 11/10/2024 PREOPERATIVE DIAGNOSIS: Enlarging lipoma right upper back POSTOPERATIVE DIAGNOSIS: Enlarging lipoma right upper back rub OPERATION: Excisional biopsy of enlarging lipoma right upper back ANESTHESIA: General with laryngeal mask airway as well as local with 0.5% Marcaine plain ESTIMATED BLOOD LOSS: Less than 7 mL INDICATIONS AND CONSENT: The patient is a 68-year-old female with a 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 Indications, risks, benefits, and alternatives of proceeding with an excisional biopsy under general anesthesia were explained extensively to the patient including the risks of bleeding, infection, scarring, pain, recurrence, need for further surgery, anesthetic complications. All of her questions were answered and informed consent was obtained. PROCEDURE: The patient was brought to the Operating Room and placed in the supine position. General anesthesia was induced. She was then placed in the left lateral decubitus position and appropriately padded and monitored. She was prepped and draped in the usual sterile fashion. An incision was made over the lipoma in the area of the skin crease in the right upper back and carried down through subcutaneous tissue using sharp dissection as well as electrocautery. Encapsulated lipoma was encountered. It was irregular approximately 5 x 7 cm in dimensions. It was mobilized using electrocautery and sent out to Pathology. The wound was copiously irrigated. There was good hemostasis. The subcutaneous tissue was reapproximated with interrupted 3-0 Monocryl suture. Skin was then closed with a running 4-0 subcuticular Monocryl suture and skin glue. Mastisol and Steri-Strips were also applied as well as a sterile pressure dressing. Sponge and needle counts were correct x2 per nursing personnel. The patient tolerated the procedure well and was placed back in the supine position and sent to the Recovery Room in good condition. Kirk Chavez M.D. [facility] ca Dictated: 11/10/2024 [id number] Transcribed: 11/10/2024 cc:Joel Musa D.O. [facility] Comment on above: Result Comment: Elec tronically Signed By: GILLES VERNON, Kirk Cox\.césar\Date and Time Signed: 11/10/24 16:06 EST Other Comment: DISRE DONELL, DO NOT USE THIS REPORT Outpatient Surgery Discharge Instructionon 11-10-2024 Outpatient Surgery Discharge Instruction Outpatient Surgery Discharge Instruction [place] [id number] Patient Discharge Instructions PERSON INFORMATION Name: CANDIDO HDEZ Date of : 1955 Current Date: 11/10/2024 09:07:01 PHYSICIANS Admitting Physician: GILLES VERNON, Kirk Cox Discharge Diagnosis: Lipoma of back CANDIDO HDEZ has been given the following list of follow-up instructions, prescriptions, and patient education materials: PATIENT FOLLOW-UP INFORMATION Diet: Regular Discharge Activity: Arrange for a responsible adult supervision for 24 hours Discharge Restrictions: No driving for 24 hrs, Do not operate machinery or tools, Do not make important decisions for 24 hours, Do not drink alcoholic beverages for 24 hours Call Your Doctor For: Persistent or heavy bleeding, Temperature above 101.5 degrees, Redness, swelling, or pus at operative site, Severe pain at the operative site, Persistent vomiting Wound Care Instructions: Keep incision dry, Remove dressing as instructed Remove Your Dressing In 1 Days Additional Instructions: may shower tomorrow, remove dressing and leave open to air air; no tub baths for 10 days; no driving while taking the Tramadol; take Aleve or ibuprofen scheduled for first week after surgery. IF UNABLE TO CONTACT YOUR PHYSICIAN AND YOU FEEL IT IS AN EMERGENCY, GO TO THE NEAREST EMERGENCY ROOM OR CALL 911 NIDIA Crandall KARIN K, have received the attached patient education materials/instructio ns and have verbalized understanding: May we do a follow up call? Yes No I was present when discharge instructions were given Patient Signature Date Clinican/Nurse Signature Date Follow up: With: Address: When: Kirk CHAVEZ [address] [place], [place] [address], [address], [facility] [address] [id number] [facility] (1) Within 7 to 10 days Comments: Call for any problems. Pharmacy Information: You may receive a survey from [employer] asking you to rate your care experience. Your feedback is important and will help us understand what we do well and how we can improve the quality of care we provide to you, your loved ones and our community. It???s an honor to serve you. Thank you for choosing [facility] HERE ARE THE MEDICATION CHANGES THAT OCCURRED DURING YOUR HOSPITAL STAY New Medications [id number], [address], [place] [id number], [phone] tramadol (traMADOL 50 mg Tab) 1 Tablets By Mouth every 6 hours as needed Pain. not to exceed 400 mg/day take with food or milk. Refills: 0. Medications to Continue with No Changes Other Medications ascorbic acid (Vitamin C 500 mg Tab) 1 Tablets By Mouth every day. calcium-vitamin D (Calcium 600 D Tab) 1 Tablets By Mouth every day. lisinopril (lisinopril 5 mg Tab) 1 Tablets By Mouth every day. pravastatin (pravastatin 40 mg Tab) 1 Tablets By Mouth every day. PATIENT EDUCATION INFORMATION Instructions: Medication Leaflets: Normal [facility] XR Chest 2 Viewson 5 XR Chest 2 Views Exam Date/Time: 10/29/2024 08:03 EST Reason for Exam: P.A.T. Report IMPRESSION: NO RADIOGRAPHIC EVIDENCE OF ACTIVE DISEASE IN THE CHEST. CLINICAL INFORMATION: P.A.T. COMPARISON: 09/13/2020 FINDINGS: Two views of the chest were obtained. Heart and mediastinum appear normal. The lungs appear clear. Visualized bony thorax and remainder of the chest appears unremarkable. Ordering Provider: Prosper Esparza FINAL REPORT Dictated: 10/31/2024 2:35 pm Joel Ramos MD Signed (Electronic Signature): 10/31/2024 2:35 pm Signed by: Joel Ramos MD Transcribed by: KRISHNA Technologist: TON Normal [facility] BMPon 10-29-2024 Anion gap [Moles/Vol] 10 mmol/L Normal 6-16 [facility] Comment on above: Performed By: #### 2 [id number] #### [facility] [address] [place] [address] Calcium [Mass/Vol] 9.5 mg/dL Normal 8.9-11.1 [facility] Comment on above: Performed By: #### 2 [id number] #### [facility] [address] [place] [address] Chloride [Moles/Vol] 104 mmol/L Normal 101-[address] [facility] Comment on above: Performed By: #### 2 [id number] #### [facility] [address] [place] [address] CO2 [Moles/Vol] 29 mmol/L Normal 21-31 [facility] Comment on above: Performed By: #### 2 [id number] #### [facility] [address] [place] [address] Creatinine [Mass/Vol] 0.6 mg/dL Normal 0.5-1.3 [facility] Comment on above: Performed By: #### 2 [id number] #### [facility] [address] [place] [address] Glucose [Mass/Vol] 73 mg/dL Normal 55-199 [facility] Comment on above: Performed By: #### 2 [id number] #### [facility] [address] [place] [address] Potassium [Moles/Vol] 3.7 mmol/L Normal 3.5-5.3 [facility] Comment on above: Performed By: #### 2 [id number] #### [facility] [address] [place] [address] Sodium [Moles/Vol] 139 mmol/L Normal 135-145 [facility] Comment on above: Performed By: #### 2 [id number] #### [facility] [address] [place] [address] Urea nitrogen [Mass/Vol] 18 mg/dL Normal 5-21 [facility] Comment on above: Performed By: #### 2 [id number] #### [facility] [address] [place] [address] Urea nitrogen/Creatinine [Mass ratio] 30 No Units High 10-20 [facility] Comment on above: Performed By: #### 2 [id number] #### [facility] [address] [place] [address] CBC w/ Auto Diffon 5 Basophils/100 WBC (Bld) 0.6 % Normal 0.0-2.0 [facility] Comment on above: Performed By: #### 2 [id number] #### [facility] [address] [place] [address] Basophils/Leukocytes Auto (Bld) [Pure # fraction] 0.0 E9/L Normal 0.0-0.2 [facility] Comment on above: Performed By: #### 2 [id number] #### [facility] [address] [place] [address] Eosinophils (Bld) [#/Vol] 0.1 E9/L Normal 0.0-0.5 [facility] Comment on above: Performed By: #### 2 [id number] #### [facility] [address] [place] [address] Eosinophils/100 WBC (Bld) 1.2 % Normal 0.0-8.0 [facility] Comment on above: Performed By: #### 2 [id number] #### [facility] [address] [place] [address] Erythrocyte distribution width (RBC) [Ratio] 13.9 % Normal 10.9-14.2 [facility] Comment on above: Performed By: #### 2 [id number] #### [facility] [address] [place] [address] Hematocrit (Bld) [Volume fraction] 39.3 % Normal 34.0-46.0 [facility] Comment on above: Performed By: #### 2 [id number] #### [facility] [address] [place] [address] Hemoglobin (Bld) [Mass/Vol] 13.1 g/dL Normal 12.0-16.0 [facility] Comment on above: Performed By: #### 2 [id number] #### [facility] [address] [place] [address] Lymphocytes (Bld) [#/Vol] 1.5 E9/L Normal 1.0-4.0 [facility] Comment on above: Performed By: #### 2 [id number] #### [facility] [address] [place] [address] Lymphocytes/100 WBC (Bld) 24.4 % Normal 14.0-50.0 [facility] Comment on above: Performed By: #### 2 [id number] #### [facility] [address] [place] [address] MCH (RBC) [Entitic mass] 29.7 pg Normal 27.0-34.0 [facility] Comment on above: Performed By: #### 2 [id number] #### [facility] [address] [place] [address] MCHC (RBC) [Mass/Vol] 33.4 g/dL Normal 31.4-36.0 [facility] Comment on above: Performed By: #### 2 [id number] #### [facility] [address] [place] [address] MCV (RBC) [Entitic vol] 88.9 fL Normal 80.0-100.0 [facility] Comment on above: Performed By: #### 2 [id number] #### [facility] [address] [place] [address] Monocytes (Bld) [#/Vol] 0.5 E9/L Normal 0.2-1.0 [facility] Comment on above: Performed By: #### 2 [id number] #### [facility] [address] [place] [address] Neutrophils (Bld) [#/Vol] 4.0 E9/L Normal 2.0-7.5 [facility] Comment on above: Performed By: #### 2 [id number] #### [facility] [address] [place] [address] Neutrophils/100 WBC (Bld) 65.8 % Normal 36.0-75.0 [facility] Comment on above: Performed By: #### 2 [id number] #### [facility] [address] [place] [address] Platelet mean volume (Bld) [Entitic vol] 7.8 fL Normal 6.4-10.8 [facility] Comment on above: Performed By: #### 2 [id number] #### [facility] [address] [place] [address] Platelets (Bld) [#/Vol] 269.0 E9/L Normal 150.0-500.0 [facility] Comment on above: Performed By: #### 2 [id number] #### [facility] [address] [place] [address] RBC (Bld) [#/Vol] 4.4 E12/L Normal 4.3-5.9 [facility] Comment on above: Performed By: #### 2 [id number] #### [facility] [address] [place] [address] WBC corrected for nucl RBC Auto (Bld) [#/Vol] 6.0 E9/L Normal 4.0-11.0 [facility] Comment on above: Performed By: #### 2 [id number] #### [facility] [address] [place] [address] CHEMISTRYOrdered By: SYSTEM SYSTEM on 10-29-2024 Anion gap [Moles/Vol] 10 mmol/L Normal 6 - 16 mEq/L R emisol Chem Calcium [Mass/Vol] 9.5 mg/dL Normal 8.9 - 11. 1 mg/dL Rem[facility] Chem Chloride [Moles/Vol] 104 mmol/L Normal 101 - 1 11 mmol/L [facility] Chem CO2 [Moles/Vol] 29 mmol/L Normal 21 - 31 mmol/L [facility] Creatinine [Mass/Vol] 0.6 mg/dL Normal 0.5 - 1.3 mg/dL [facility] Chem eGFR 97 mL/min/1.73 m2 Normal >=59mL/min /1. 73 m2 [facility] Glucose [Mass/Vol] 73 mg/dL Normal 55 - 199 mg/dL [facility] Potassium [Moles/Vol] 3.7 mmol/L Normal 3.5 - 5.3 mmol/L [facility] Sodium [Moles/Vol] 139 mmol/L Normal 135 - 145 mmol/L [facility] Urea nitrogen [Mass/Vol] 18 mg/dL Normal 5 - 21 mg/dL [facility] Urea nitrogen/Creatinine [Mass ratio] 30 mg/mg High 10 - 20 [facility] HEMATOLOGYOrdered By: SYSTEM SYSTEM on 10-29-2024 Basophils/100 WBC (Bld) 0.6 % Normal 0.0 - 2.0 % Remisol Heme Basophils/Leukocytes Auto (Bld) [Pure # fraction] 0.0 E9/L Normal 0.0 - 0.2 E9/L [facility]e Eosinophils (Bld) [#/Vol] 0.1 E9/L Normal 0.0 - 0.5 E9/L Rem[facility]e Eosinophils/100 WBC (Bld) 1.2 % Normal 0.0 - 8.0 % Rem[facility]e Erythrocyte distribution width (RBC) [Ratio] 13.9 % Normal 10.9 - 14.2 % [facility] Hematocrit (Bld) [Volume fraction] 39.3 % Normal 34.0 - 46.0 % [facility]e Hemoglobin (Bld) [Mass/Vol] 13.1 g/dL Normal 12.0 - 16.0 gm/dL [facility] Lymphocytes (Bld) [#/Vol] 1.5 E9/L Normal 1.0 - 4.0 E9/L [facility] Lymphocytes/100 WBC (Bld) 24.4 % Normal 14.0 - 50.0 % [facility] MCH (RBC) [Entitic mass] 29.7 pg Normal 27.0 - 34.0 pg Rem[facility]e MCHC (RBC) [Mass/Vol] 33.4 g/dL Normal 31.4 - 36.0 gm/dL [facility]e MCV (RBC) [Entitic vol] 88.9 fL Normal 80.0 - 100.0 fL [facility] Monocytes (Bld) [#/Vol] 0.5 E9/L Normal 0.2 - 1.0 E9/L [facility] Monocytes/100 WBC (Bld) 8.0 % Normal 4.0 - 14.0 % [facility] Neutrophils (Bld) [#/Vol] 4.0 E9/L Normal 2.0 - 7.5 E9/L [facility] Neutrophils/100 WBC (Bld) 65.8 % Normal 36.0 - 75.0 % [facility] Platelet mean volume (Bld) [Entitic vol] 7.8 fL Normal 6.4 - 10.8 fL [facility] Platelets (Bld) [#/Vol] 269.0 E9/L Normal 150.0 - 500.0 E9/L [facility] RBC (Bld) [#/Vol] 4.4 E12/L Normal 4.3 - 5.9 E12/L [facility] WBC corrected for nucl RBC Auto (Bld) [#/Vol] 6.0 E9/L Normal 4.0 - 11.0 E9/L [facility] eGFRon 10-29-2024 eGFR 97 mL/min/1.73 m2 Normal >=59 [facility] Comment on above: Performed By: #### 1 [id number] ####[facility] [address] [place] [address] Ambulatory Visit Summaryon 0 10-28-2024 Ambulatory Visit Summary Ambulatory Visit Summary ETHAN HDEZJUVE Rogers :1955 Visit Date:10/28/2024 Ambulatory Visit Instructions Your Care Team Attending Physician - GILLES VERNON, Kirk Cox Primary Care Physician - JOEL MUSA DO Referring Physician - JOEL MUSA DO This Is Your Medications List Contact prescribing physician if questions or concerns lisinopril (lisinopril 5 mg Tab) pravastatin (pravastatin 40 mg Tab) Procedures Performed Polyp of anal verge (10/04/2020), Colonoscopy (04/05/2016), Appendectomy (1959), Endovenous laser ablation of varicose vein, LEXI BSO - Total abdominal hysterectomy and bilateral salpingo-oophorectom y. Discharge Vitals Heart Rate (Peripheral) 72 Respiratory Rate 16 Blood Pressure 168/80 Height 170 cm Height 67 in Weight 68.3 kg Weight 150.576 lb BMI 23.63 What to do next Scheduled Follow-Up Appointments Sunday 7:30 AM EST Where: [facility] Sunday 8:00 AM EST Where: [facility] Medications What How Much When Instructions Unchanged lisinopril (lisinopril 5 mg Tab) 1 Tablets By Mouth Every day Contact prescribing physician if questions or concerns Unchanged pravastatin (pravastatin 40 mg Tab) 1 Tablets By Mouth Every day Contact prescribing physician if questions or concerns Allergies No Known Allergies No Known Medication Allergies Problems Ongoing - Any problem that you are currently receiving treatment for. Anal polyp Anorectal skin tags Chronic venous insufficiency Estrogen deficiency External hemorrhoids Hypercholesteremia Hyperlipidemia type II Hypertension Lipoma of back Spondylosis, cervical Varicose veins without complication Historical - Any problem that you are no longer receiving treatment for. HTN (hypertension) Migraine headache Patient Survey You may receive a survey via text or e-mail asking about your office visit. Please share your experience with us by completing your survey. We appreciate your feedback and thank you for choosing us for your care. Normal [facility] CBC AUTO DIFFon 02-16-2022 BASO # 0.0 103/ul Normal 0.0-0.1 [facility] Comment on above: Performed By: #### C BC #### [facility] [address] [place] [address] Dr. Henrietta Fine Basophils/100 WBC (Bld) 0.6 % Normal 0.2-2.0 [facility] Comment on above: Performed By: #### C BC #### [facility] [address] [place] [address] Dr. Henrietta Fine EO # 0.1 103/ul Normal 0.0-0.7 [facility] Comment on above: Performed By: #### C BC #### [facility] [address] [place] [address] Dr. Henrietta Fine Eosinophils/100 WBC (Bld) 1.1 % Normal 0.9-7.0 [facility] Comment on above: Performed By: #### C BC #### [facility] [address] [place] [address] Dr. Henrietta Fine Erythrocyte distribution width (RBC) [Ratio] 13.2 % Normal 11.0-15.0 [facility] Comment on above: Performed By: #### C BC #### [facility] [address] [place] [address] Dr. Hnerietta Fine Hematocrit (Bld) [Volume fraction] 40.3 % Normal 36.0-48.0 [facility] Comment on above: Performed By: #### C BC #### [facility] [address] [place] [address] Dr. Henrietta Fine Hemoglobin (Bld) [Mass/Vol] 13.1 g/dL Normal 12.0-16.0 [facility] Comment on above: Performed By: #### C BC #### [facility] [address] [place] [address] Dr. Henrietta Fine IG # 0.02 10e3/ul Normal 0.00-0.03 [facility] Comment on above: Performed By: #### C BC #### [facility] [address] [place] [address] Dr. Henrietta Fine IG % 0.4 % Normal 0.0-0.5 [facility] Comment on above: Performed By: #### C BC #### [facility] [address] [place] [address] Dr. Henrietta Fine LYMPH # 1.6 103/ul Normal 1.2-3.8 [facility] Comment on above: Performed By: #### C BC #### [facility] [address] [place] [address] Dr. Henrietta Fine Lymphocytes/100 WBC (Bld) 29.6 % Normal 20.5-60.0 [facility] Comment on above: Performed By: #### C BC #### [facility] [address] [place] [address] Dr. Henrietta Fine MANUAL DIFF REQ NO Normal [facility] Comment on above: Performed By: #### C BC #### [facility] [address] [place] [address] Dr. Henrietta Fine MCH (RBC) [Entitic mass] 29.7 pg Normal 26.7-34.0 [facility] Comment on above: Performed By: #### C BC #### [facility] [address] [place] [address] Dr. Henrietta Fine MCHC (RBC) [Mass/Vol] 32.5 g/dL Normal 29.9-35.2 [facility] Comment on above: Performed By: #### C BC #### [facility] [address] [place] [address] Dr. Henrietta Fine MCV (RBC) [Entitic vol] 91.4 fL Normal 81.0-99.0 [facility] Comment on above: Performed By: #### C BC #### [facility] [address] [place] [address] Dr. Henrietta Fine MONO # 0.6 103/ul Normal 0.3-0.8 [facility] Comment on above: Performed By: #### C BC #### [facility] [address] [place] [address] Dr. Henrietta Fine Monocytes/100 WBC (Bld) 10.4 % Normal 1.7-12.0 [facility] Comment on above: Performed By: #### C BC #### [facility] [address] [place] [address] Dr. Henrietta Fine NEUT # 3.1 103/ul Normal 1.4-6.5 [facility] Comment on above: Performed By: #### C BC #### [facility] [address] [place] [address] Dr. Henrietta Fine Neutrophils/100 WBC (Bld) 57.9 % Normal 43.0-75.0 [facility] Comment on above: Performed By: #### C BC #### [facility] [address] [place] [address] Dr. Henrietta Fine Platelet mean volume (Bld) [Entitic vol] 8.8 fL Critically low 9.5-13.5 [facility] Comment on above: Performed By: #### C BC #### [facility] [address] [address] [address] Henrietta Fine PLT 220 103/ul Normal 150-450 [facility] Comment on above: Performed By: #### C BC #### [facility] [address] [address] [address] Henrietta Fine RBC 4.41 106/ul Normal 4.20-5.40 [facility] Comment on above: Performed By: #### C BC #### [facility] [address] [address] [address] Henrietta Fine WBC 5.4 103/ul Normal 4.0-11.0 [facility] Comment on above: Performed By: #### C BC #### [facility] [address] [place] [address] Dr. Henrietta Fine LIPID PROFILEon 02-16-2022 CHOL-HDL RATIO NORM SEE BELOW Normal [facility] Comment on above: Result Comment: 3.3 - 4.4 LOW RISK 4.4 - 7.1 AVERAGE RISK 7.1 - 11.0 MODERATE RISK >11.0 HIGH RISK Performed By: #### B MP, ALT, LIPID #### [facility] [address] [place] [address] Dr. Henrietta Fine Cholesterol [Mass/Vol] 188 mg/dL Normal <=200 [facility] Comment on above: Performed By: #### B MP, ALT, LIPID #### [facility] [address] [place] [address] Dr. Henrietta Fine Cholesterol in HDL [Mass/Vol] 72 mg/dL Critically high 40-60 [facility] Comment on above: Performed By: #### B MP, ALT, LIPID #### [facility] [address] [place] [address] Dr. Henrietta Fine Cholesterol in LDL [Mass/Vol] 98.2 mg/dL Normal [facility] Comment on above: Performed By: #### B MP, ALT, LIPID #### [facility] [address] [address] [address] Henrietta Fine Cholesterol.total/Cho lesterol in HDL [Mass ratio] 2.6 {ratio} Normal [facility] Comment on above: Performed By: #### B MP, ALT, LIPID #### [facility] [address] [address] [address] Henrietta Fine HDL NORMAL > or = 60 mg/dl - LOW CARDIOVASCULAR RISK <40 mg/dl - HIGH CARDIOVASCULAR RISK Normal [facility] Comment on above: Performed By: #### B MP, ALT, LIPID #### [facility] [address] [address] [address] Henrietta Fine LDL CALC NORMAL SEE BELOW Normal [facility] Comment on above: Result Comment: <100 mg/dl OPTIMAL 100 - 129 mg/dl NEAR OR ABOVE OPTIMAL 130 - 159 mg/dl BORDERLINE HIGH 160 - 189 mg/dl HIGH >190 mg/dl VERY HIGH Performed By: #### B MP, ALT, LIPID #### [facility] Laboratory [address] [address] [address] Henrietta Fine Triglyceride [Mass/Vol] 89 mg/dL Normal <=150 [facility] Comment on above: Performed By: #### B MP, ALT, LIPID #### [facility] [address] [address] [address] Henrietta Fine VLDL CALC 17.8 mg/dL Normal [facility] Comment on above: Performed By: #### B MP, ALT, LIPID #### [facility] [address] [place] [address] Dr. Henrietta Fine PROF CHEM 8 (BAS METB)on Anion gap [Moles/Vol] 12.1 mmol/L Normal [facility] Comment on above: Performed By: #### B MP, ALT, LIPID #### [facility] [address] [address] [address] Henrietta Fine Calcium [Mass/Vol] 9.3 mg/dL Normal 8.5-10.1 [facility] Comment on above: Performed By: #### B MP, ALT, LIPID #### [facility] [address] [address] [address] Henrietta Fine Chloride [Moles/Vol] 101 mmol/L Normal 98-107 [facility] Comment on above: Performed By: #### B MP, ALT, LIPID #### [facility] [address] [address] [address] Henrietta Fine CO2 [Moles/Vol] 28.9 mmol/L Normal 21.0-32.0 [facility] Comment on above: Performed By: #### B MP, ALT, LIPID #### [facility] [address] [address] [address] Henrietta Fine Creatinine [Mass/Vol] 0.71 mg/dL Normal 0.55-1.02 [facility] Comment on above: Performed By: #### B MP, ALT, LIPID #### [facility] [address] [address] [address] Henrietta Fine EGFR-AF SOUTH AFRICAN >60 Normal >=60 [facility] Comment on above: Performed By: #### B MP, ALT, LIPID #### [facility] [address] [address] [address] Henrietta Fine EGFR-NON AF SOUTH AFRICAN >60 Normal >=60 [facility] Comment on above: Performed By: #### B MP, ALT, LIPID #### [facility] [address] [address] [address] Henrietta Fine Glucose [Mass/Vol] 94 mg/dL Normal 74-106 [facility] Comment on above: Performed By: #### B MP, ALT, LIPID #### [facility] [address] [address] [address] Henrietta Fine Potassium [Moles/Vol] 4.0 mmol/L Normal 3.5-5.1 [facility] Comment on above: Performed By: #### B MP, ALT, LIPID #### [facility] [address] [address] [address] Henrietta Fine Sodium [Moles/Vol] 138 mmol/L Normal 136-145 [facility] Comment on above: Performed By: #### B MP, ALT, LIPID #### [facility] [address] [address] [address] Henrietta Fine Urea nitrogen [Mass/Vol] 14.0 mg/dL Normal 7.0-18.0 [facility] Comment on above: Performed By: #### B MP, ALT, LIPID #### [facility] [address] [place] [address] Dr. Henrietta Fine Urea nitrogen/Creatinine [Mass ratio] 19.7 mg/mg Normal [facility] Comment on above: Performed By: #### B MP, ALT, LIPID #### [facility] [address] [address] [address] Henrietta Fine SGPTon 02-16-2022 ALT [Catalytic activity/Vol] 25 U/L Normal 14-59 [facility] Comment on above: Performed By: #### B MP, ALT, LIPID #### [facility] [address] [place] [address] Dr. Henrietta Fine Covid-19 PCR (CVDTBH)on 09-01 SARS-CoV-2 (COVID-19) RNA KEYA+probe Ql (Unsp spec) Detected Critically abnormal NOT DETECTED [facility] Comment on above: Result Comment: This test is not yet approved or cleared by the [place] FDA. When there are no FDA-approved or cleared tests available, and other criteria are met, FDA can make tests available under an emergency access mechanism called an Emergency Use Authorization (EUA). The EUA for this test is supported by the [place] of Health and Human Service's (HHS's) declaration that circumstances exist to justify the emergency use of in vitro diagnostics for the detection and/or diagnosis of the virus that causes COVID-19. This EUA will remain in effect (meaning this test can be used) for the duration of the COVID-19 declaration justifying emergency of IVDs, unless it is terminated or revoked by FDA (after which the test may no longer be used). Performed By: #### C VDTBH #### [facility] [address] [place] [address] Dr. Henrietta Fine Covid-19 PCR (CVDTBH)on SARS-CoV-2 (COVID-19) RNA KEYA+probe Ql (Unsp spec) Not detected Normal NOT DETECTED [facility] Comment on above: Result Comment: This test is not yet approved or cleared by the [place] FDA. When there are no FDA-approved or cleared tests available, and other criteria are met, FDA can make tests available under an emergency access mechanism called an Emergency Use Authorization (EUA). The EUA for this test is supported by the [place] of Health and Human Service's (HHS's) declaration that circumstances exist to justify the emergency use of in vitro diagnostics for the detection and/or diagnosis of the virus that causes COVID-19. This EUA will remain in effect (meaning this test can be used) for the duration of the COVID-19 declaration justifying emergency of IVDs, unless it is terminated or revoked by FDA (after which the test may no longer be used). When diagnostic testing is negative, the possibility of a false negative should be considered in the context of a patient's recent exposures and the presence of clinical signs and symptoms consistent with SARS-CoV-2. Performed By: #### C VDTB #### [facility] [address] [place] [address] Leah Aguirre Covid-19 PCR [facility]on 03-02 SARS-CoV-2 (COVID-19) RNA KEYA+probe Ql (Unsp spec) Not detected Normal NOT DETECTED [facility] Comment on above: Result Comment: This test is not yet approved or cleared by the [place] FDA. When there are no FDA-approved or cleared tests available, and other criteria are met, FDA can make tests available under an emergency access mechanism called an Emergency Use Authorization (EUA). The EUA for this test is supported by the Clinical Auditor of Health and Human Service's (HHS's) declaration that circumstances exist to justify the emergency use of in vitro diagnostics for the detection and/or diagnosis of the virus that causes COVID-19. This EUA will remain in effect (meaning this test can be used) for the duration of the COVID-19 declaration justifying emergency of IVDs, unless it is terminated or revoked by FDA (after which the test may no longer be used). When diagnostic testing is negative, the possibility of a false negative should be considered in the context of a patient's recent exposures and the presence of clinical signs and symptoms consistent with SARS-CoV-2. Performed By: #### C VDTBH #### [facility] [address] [place] [id number] Leah Aguirre RAPID COVID-19 ANTIGENon EUA Statement SEE BELOW Normal The [facility] Comment on above: Result Comment: This test has not been FDA cleared or approved, but has been authorized by the FDA under an Emergency Use Authorization (EUA) for use by authorized laboratories certified under CLIA that meet the requirements to perform moderate or high complexity testing. This test has been authorized only for the detection of proteins from SARS-CoV-2, not for any other viruses or pathogens. The emergency use of this test is authorized for the duration of the declaration that circumstances exist justifying the authorization of emergency use of in vitro diagnostic tests for detection and/or diagnosis of Covid-19 under section 564(b)(1) of the Act, 21 U.S.C. 360bbb-3(b)(1), unless the declaration is terminated or authorization is revoked sooner. Performed By: #### C VDAG #### [facility] [address] [place] [id number] Leah Aguirre SARS-CoV-2 (COVID-19) RNA KEYA+probe Ql (Unsp spec) Negative Normal NEGATIVE [facility] Comment on above: Result Comment: Nega tive results are presumptive. They do not preclude infection and should not be used as the sole basis for treatment decisions. Additional confirmatory testing by a molecular method should be considered. Performed By: #### C VDAG #### [facility] [address] [place] [id number] Leah Aguirre Vital Signs Date Time Vital Sign Value Performing Clinician Facility 11-10-2024 10:19-0500 Heart rate 63 /min Kirk CHAVEZ [facility] 11-10-2024 10:19-0500 SaO2% (BldA) [Mass fraction] 97 % Kirk CHAVEZ [facility] 11-10-2024 10:19-0500 Diastolic blood pressure 74 mm[Hg] Kirk CHAVEZ [facility] 11-10-2024 10:19-0500 Mean blood pressure 99 mm[Hg] Kirk NILL [facility] 11-10-2024 10:19-0500 Systolic blood pressure 150 mm[Hg] Kirk NILL [facility] 11-10-2024 09:24-0500 Heart rate 73 /min Kirk NILL [facility] 11-10-2024 09:24-0500 SaO2% (BldA) [Mass fraction] 98 % Kirk NILL [facility] 11-10-2024 09:24-0500 Body temperature 97.34 [degF] Kirk NILL [facility] 11-10-2024 09:23-0500 Respiratory rate 16 /min Kirk NILL [facility] 11-10-2024 09:22-0500 Blood Pressure Location Kirk NILL [facility] 11-10-2024 09:22-0500 Diastolic blood pressure 83 mm[Hg] Kirk NILL [facility] 11-10-2024 09:22-0500 Mean blood pressure 110 mm[Hg] Kirk NILL [facility] 11-10-2024 09:22-0500 Systolic blood pressure 163 mm[Hg] Kirk NILL [facility] 11-10-2024 09:15-0500 Body temperature 97.34 [degF] Kirk NILL [facility] 11-10-2024 09:15-0500 Diastolic blood pressure 77 mm[Hg] Kirk NILL [facility] 11-10-2024 09:15-0500 Heart rate 72 /min Kirk NILL [facility] 11-10-2024 09:15-0500 Mean blood pressure 100 mm[Hg] Kirk NILL [facility] 11-10-2024 09:15-0500 Respiratory rate 12 /min Kirk NILL [facility] 11-10-2024 09:15-0500 SaO2% (BldA) [Mass fraction] 99 % Kirk NILL [facility] 11-10-2024 09:15-0500 Systolic blood pressure 147 mm[Hg] Kirk NILL [facility] 11-10-2024 09:05-0500 Mean blood pressure 89 mm[Hg] Kirk NILL [facility] 11-10-2024 09:05-0500 Respiratory rate 11 /min Kirk NILL [facility] 11-10-2024 09:00-0500 Mean blood pressure 90 mm[Hg] Kirk NILL [facility] 11-10-2024 08:50-0500 Body temperature 97.52 [degF] Kirk NILL [facility] 11-10-2024 08:45-0500 Respiratory rate 3 /min Kirk NILL [facility] 11-10-2024 08:40-0500 Respiratory rate 14 /min Kirk NILL [facility] 11-10-2024 06:21-0500 Blood Pressure Location Kirk NILL [facility] 11-10-2024 06:21-0500 Mean blood pressure 99 mm[Hg] Kirk NILL [facility] 11-10-2024 06:21-0500 Heart rate 68 /min Kirk NILL [facility] 11-10-2024 06:19-0500 Body temperature 97.88 [degF] Kirk NILL [facility] 11-10-2024 06:19-0500 Blood Pressure Location Kirk NILL [facility] 10-29-2024 07:30-0500 Diastolic blood pressure 73 mm[Hg] Kirk NILL [facility] 10-29-2024 07:30-0500 Heart rate 71 /min Kirk NILL [facility] 10-29-2024 07:30-0500 Mean blood pressure 100 mm[Hg] Kirk NILL [facility] 10-29-2024 07:30-0500 Systolic blood pressure 153 mm[Hg] Kirk NILL [facility] 10-29-2024 07:29-0500 Heart rate 70 /min Kirk NILL [facility] 10-29-2024 07:29-0500 SaO2% (BldA) [Mass fraction] 99 % Kirk NILL [facility] 10-29-2024 07:29-0500 Respiratory rate 16 /min Kirk NILL [facility] 10-29-2024 07:29-0500 Diastolic blood pressure 74 mm[Hg] Kirk NILL [facility] 10-29-2024 07:29-0500 Mean blood pressure 102 mm[Hg] Kirk NILL [facility] 10-29-2024 07:29-0500 Systolic blood pressure 159 mm[Hg] Kirk NILL [facility] 10-28-2024 13:13-0500 Blood Pressure Location Kirk NILL [facility] [place] 10-28-2024 13:13-0500 Diastolic blood pressure 80 mm[Hg] Kirk NILL [facility] [place] 10-28-2024 13:13-0500 Heart rate 72 /min Kirk NILL [facility] 10-28-2024 13:13-0500 Respiratory rate 16 /min Kirk NILL [facility] 10-28-2024 13:13-0500 Systolic blood pressure 168 mm[Hg] Kirk NILL [facility] 08-04-2024 13:14-0500 Body height 167.64 cm [facility] 08-04-2024 13:14-0500 Body mass index (BMI) [Ratio] 24.7 kg/m2 [place] 08-04-2024 13:14-0500 Body weight 69.39 kg [facility] 08-04-2024 13:14-0500 Diastolic blood pressure 78 mm[Hg] [place] 08-04-2024 13:14-0500 Heart rate 80 /min [facility] 08-04-2024 13:14-0500 Respiratory rate 12 /min [facility] 08-04-2024 13:14-0500 Systolic blood pressure 151 mm[Hg] [place] 03-20-2024 10:24-0400 Body height 167.64 cm [facility] 03-20-2024 10:24-0400 Body mass index (BMI) [Ratio] 25.3 kg/m2 [place] 03-20-2024 10:24-0400 Body weight 71.21 kg [facility] 03-20-2024 10:24-0400 Diastolic blood pressure 74 mm[Hg] [place] 03-20-2024 10:24-0400 Heart rate 66 /min [facility] 03-20-2024 10:24-0400 Respiratory rate 12 /min [facility] 03-20-2024 10:24-0400 Systolic blood pressure 130 mm[Hg] [place] 03-19-2023 09:30-0400 Body height 167.64 cm Joel Ball Other [employer] Other 03-19-2023 09:30-0400 Body mass index (BMI) [Ratio] 25.66 kg/m2 Joel Ball Other [employer] Other 03-19-2023 09:30-0400 Body weight 72.12 kg Joel Ball Other [employer] Other 03-19-2023 09:30-0400 Diastolic blood pressure 74 mm[Hg] Joel Ball Other [employer] Other 03-19-2023 09:30-0400 Systolic blood pressure 134 mm[Hg] Joel Ball Other [employer] Other Encounters Encounter Date Encounter Type Care Provider Facility Start: 12-11-2024 End: 12-11-2024 Patient encounter procedure Joel Ball DO Work Phone: [facility] Work Phone: Start: 12-11-2024 End: 12-11-2024 ambulatory Joel Ball DO Work Phone: [facility] Work Phone: Start: 11-19-2024 End: 11-19-2024 ambulatory Kirk CHAVEZ Facility:[facility] Start: 11-19-2024 End: 11-19-2024 Patient encounter procedure Kirk CHAVEZ [facility] [place] Start: 11-10-2024 End: 11-10-2024 Admission to same day surgery center Kirk R NILL [facility] Start: 11-10-2024 End: 11-10-2024 ambulatory Kirk R NILL Facility:[facility] Start: 10-29-2024 End: 10-29-2024 ambulatory Kirk R NILL Facility:[facility] Start: 10-29-2024 End: 10-29-2024 Patient encounter procedure Kirk R NILL [facility] Start: 10-28-2024 End: 10-28-2024 ambulatory Kirk R NILL Facility:[facility] Start: 10-28-2024 End: 10-28-2024 Patient encounter procedure Kirk R NILL [facility] [place] Start: 10-21-2024 ambulatory Kirk NILL Facility:[facility] Start: 08-04-2024 End: 08-04-2024 ambulatory [facility] Work Phone: Start: 08-04-2024 End: 08-04-2024 Patient encounter procedure [facility] Physician [facility] Work Phone: Start: 03-20-2024 End: 03-20-2024 ambulatory [facility] Work Phone: Start: 03-20-2024 End: 03-20-2024 Patient encounter procedure [facility] Physician [facility] Work Phone: Start: 07-30-2023 End: 07-30-2023 ambulatory Joel Musa Other [employer] Other Start: 07-30-2023 Nursing evaluation o f patient and report Joel Musa [facility] Start: 03-20-2023 End: 03-20-2023 ambulatory oJel Musa Other [employer] Other Start: 03-20-2023 Telephone encounter Joel C[facility] Start: 03-19-2023 End: 03-19-2023 ambulatory Joel Musa Other [employer] Other Start: 03-19-2023 Patient encounter procedure Joel Musa [facility] Start: 11-28-2022 End: 11-28-2022 ambulatory DO Joel Musa Work Phone: [facility] Work Phone: Start: 11-28-2022 End: 11-28-2022 Patient encounter procedure DO Joel Musa Work Phone: [facility] Work Phone: Start: 02-16-2022 End: 02-17-[address] JOEL MUSA Facility:[facility] Start: 02-15-2022 Adult health examination Gulshan Musa Other [employer] Other Start: 09-28-2021 End: 09-28-[address] JOEL MUSA Facility:[facility] Start: 08-02-2021 End: 08-03-2021 ambulatory RAULITO HANLEY Facility:[facility] Start: 05-05-2021 End: 05-06-[address] JOEL MUSA Facility:[facility] Start: 03-25-2021 Encounter for preprocedural laboratory examination DR ELSA DAVIDSON [facility] Start: 03-23-2021 End: 03-23-[address] ELSA DAVIDSON Facility:[facility] Start: 03-21-2021 End: 03-22-[address] ELSA DAVIDSON Facility:[facility] Start: 03-21-2021 End: 03-22-2021 Encounter for preprocedural laboratory examination DR ELSA DAVIDSON Facility:[facility] Procedures Date Procedure Procedure Detail Performing Clinician Start: 12-11-2024 Screening mammograph y of bilateral breasts Joel Musa DO Work Phone: Start: 11-10-2024 Excision of cyst Michae l NILL Start: 11-10-2024 Excision of lipoma of back Kirk CHAVEZ Start: 11-28-2022 Screening mammograph y of bilateral breasts DO Joel Musa Work Phone: Start: 02-15-2022 Depression screening Be mckenna Musa Other Start: 10-04-2020 Polyp of anal verge Juanito hajeffrey CHAVEZ Start: 02-19-2017 General examination of patient Joel Musa Other Start: 04-05-2016 Colonoscopy Kirk MIRELES LL Start: 10-01-1959 Appendectomy Kirk NI LL Endovenous laser abl ation of varicose vein Kirk CHAVEZ Comment on above: bilateral legs Screening for malign ant neoplasm of breast Joel Musa Other Total abdominal hysterectomy with bilateral salpingo-oophorectomy Kirk CHAVEZ Plan of Treatment Date Care Activity Detail Author Comprehensive metabo lic 2000 panel - Serum or Plasma [facility] enter [facility] Immunizations Immunization Date Immunization Notes Care Provider Rashmi matta 09-04-2024 influenza virus vaccine, unspecified formulation Kirk CHAVEZ [facility] [place] 09-04-2024 influenza, high dose seasonal, preservative-free Joel Musa DO Work Phone: [place] 07-30-2023 influenza, high dose seasonal, preservative-free Joel Musa Other [facility] Other 07-30-2023 influenza virus vaccine, unspecified formulation [place] 07-10-2022 influenza virus vaccine, split virus (incl. purified surface antigen) Joel Musa Other [facility] Other 07-10-2022 influenza virus vaccine, unspecified formulation [place] 06-15-2022 pneumococcal polysaccharide vaccine, 23 valent Joel Musa Other [place] 08-02-2021 COVID-19 Vaccine Pfi zer - Documentation Purposes Only Joel Musa Other [place] 07-18-2021 influenza virus vaccine, split virus (incl. purified surface antigen) Joel Musa Other [facility] Other 07-18-2021 influenza virus vaccine, unspecified formulation [place] 12-21-2020 COVID-19 Vaccine Pfi zer - Documentation Purposes Only Joel Musa Other [place] 11-29-2020 COVID-19 Vaccine Pfi zer - Documentation Purposes Only Joel Musa Other [place] 10-16-2020 tetanus and diphther ia toxoids, adsorbed, preservative free, for adult use (5 Lf of tetanus toxoid and 2 Lf of diphtheria toxoid) [place] 10-16-2020 tetanus toxoid, adsorbed Joel Musa Other [place] 10-16-2020 tetanus toxoid, redu millie diphtheria toxoid, and acellular pertussis vaccine, adsorbed DO Joel Musa Work Phone: [place] 08-05-2020 pneumococcal conjuga te vaccine, 13 valent Joel Musa Other [place] 06-29-2020 influenza virus vaccine, split virus (incl. purified surface antigen) Joel Musa Other [facility] Other 06-29-2020 influenza virus vaccine, unspecified formulation [place] 11-29-2018 zoster vaccine recombinant Joel Musa Other [place] 09-27-2018 zoster vaccine recombinant Joel Musa Other [place] 11-09-2017 influenza, seasonal, injectable Joel Musa Other [place] Payers Date Payer Category Payer Medicare [id number] 1960 Self-pay 1960 Unknown [id number] 1960 Unknown 1960 Unknown [id number] 1955 Unknown [id number] 1954 Unknown [id number] 1954 Unknown [id number] 1954 Unknown [id number] 1954 Unknown [id number] 1954 Unknown [id number] 1954 Unknown [id number] 1954 Unknown [id number] 1954 Unknown [id number] Private Health Insurance [employer] [id number] Unknown [id number] Unknown [place] BC/BS [id number] Unknown [employer] [place] [id number] Unknown [id number] Social History Date Type Detail Facility Start: 10-16-2020 End: 11-19-2024 Tobacco smoking status NHIS Ex-smoker (finding) [place] Comment on above: quit Start: 1955 Sex Assigned At Female F [facility] Sex Assigned At [facility] Start: 03-19-2023 End: 03-19-2023 Tobacco smoking status NHIS Never smoked tobacco (finding) [place] Tobacco smoking status Never [facility] [place] Comment on above: quit Start: 12-12-2024 Sex Female (finding) [facility] Functional Status Date Assessment Result Facility 11-19-2024 Functional Status N/A [facility] 10-29-2024 Functional Status No [facility] 10-28-2024 Functional Status N/A [facility] [place] Clinical Notes 03-23-2021 to 11-12-2024 Note Date & Type Note Facility 11-12-2024 Note Progress Note-Physic anne Patient: CANDIDO HDEZ Age: 68 years Sex: Female : 1955 Associated Diagnoses: None Author: Prosper Capps Jr, DO Postoperative Information Postoperative disposition: Postoperative disposition: To PACU. Optimetrix number: Optimetrix number [id number]. Anesthetic utilized: General. Health Status Allergies: Allergic Reactions (Selected) No Known Allergies No Known Medication Allergies Physical Examination Vital Signs 11/10/2024 10:19 EST Heart Rate Monitored 63 bpm SpO2 97 % 11/10/2024 10:19 EST Systolic Blood Pressure 150 mmHg HI Diastolic Blood Pressure 74 mmHg Mean Arterial Pressure, Monitered 99 mmHg 11/10/2024 9:24 EST Heart Rate Monitored 73 bpm SpO2 98 % 11/10/2024 9:24 EST Temperature Temporal Artery 36.3 DegC 11/10/2024 9:23 EST Respiratory Rate 16 br/min 11/10/2024 9:22 EST Systolic Blood Pressure 163 mmHg HI Diastolic Blood Pressure 83 mmHg Blood Pressure Location Right arm Mean Arterial Pressure, Monitered 110 mmHg 11/10/2024 9:15 EST Temperature Temporal Artery 36.3 DegC Heart Rate Monitored 72 bpm Respiratory Rate Monitored 12 br/min Systolic Blood Pressure 147 mmHg HI Diastolic Blood Pressure 77 mmHg Mean Arterial Pressure, Cuff 100 mmHg SpO2 99 % Pain Assessment: Controlled. General: Awake, Alert, Appropriate. Respiratory: Adequate air exchange. Cardiovascular: Stable, Normal peripheral perfusion. Neurological: Normal sensory function, Normal motor function. Assessment Anesthetic outcome No anesthetic complications noted. Adequate pain relief. able to void without difficulty, able to ambulate with assist, tolerating PO intake, no N/V. Review / Management Condition: Stable. Plan Transfer/Discharge: Transfer/Discharge Discharge when meets criteria ( To home ). [facility] Comment on above: Result Comment: Elec tronically Signed By: Prosper Capps Jr, DO\.br\Date and Time Signed: 11/12/24 11:38 EST 11-11-2024 Hospital Discharge instructions Follow Up Care 11/11/2024 10:20:24 With:GILLES VERNON, RONNI Egan Address: [address] [place] [address]- When: only if needed [facility] General Surgery [place] 11-11-2024 Note Progress Note-Physic anne Patient: CANDIDO HDEZ Age: 68 years Sex: Female : 1955 Associated Diagnoses: None Author: Prosper Capps Jr, DO Preoperative Information Anesthesia Preop Info: Time patient last ate or drank 11/10/2024 00:00:00. Anesthesia history: Patient history: None. Family history+: None. Informed consent: Signed by patient. Re-evaluation prior to induction: Initial evaluation reviewed: No significant change. Review of Systems Eye: Negative except as documented in history of present illness. Ear/Nose/Mouth/Throat: Negative except as documented in history of present illness. Respiratory: Negative except as documented in history of present illness. Cardiovascular: Negative except as documented in history of present illness. Musculoskeletal: Negative except as documented in history of present illness. Neurologic: Negative except as documented in history of present illness. Health Status Allergies: Allergic Reactions (Selected) No Known Allergies No Known Medication Allergies Problem list: All Problems Varicose veins without complication / SNOMED CT 667786974 / Confirmed Anorectal skin tags / SNOMED CT 294419583 / Confirmed Chronic venous insufficiency / SNOMED CT 96770877 / Confirmed Lipoma of back / SNOMED CT 986940144 / Confirmed Hypertension / SNOMED CT 1529598866 / Confirmed Hypercholesteremia / SNOMED CT 32138153 / Confirmed Hyperlipidemia type II / SNOMED CT 8696325478 / Confirmed External hemorrhoids / SNOMED CT 95785942 / Confirmed Estrogen deficiency / SNOMED CT 319886526 / Confirmed Spondylosis, cervical / SNOMED CT 0003894968 / Confirmed Anal polyp / SNOMED CT 301360875 / Confirmed Resolved: Migraine headache / SNOMED CT 89407966 Resolved: HTN (hypertension) / SNOMED CT 4381062080 Histories Procedure history: Excision and Biopsy of Polyp of anal verge (7918382014) on 10/04/2020 at 64 Years. Colonoscopy ([id number]) on 04/05/2016 at 60 Years. Appendectomy (797515240) in 1959 at 4 Years. Endovenous laser ablation of varicose vein ([id number]). Comments: 08/16/2020 11:33 EST - Rosemarie Gutierrez LPN bilateral legs LEXI BSO - Total abdominal hysterectomy and bilateral salpingo-oophorectomy ([id number]). Social History Social & Psychosocial Habits Alcohol 11/10/2024 Risk Assessment: Low Risk 11/10/2024 Type: Wine Frequency: 1-2 times per month Use: Current Substance Abuse 11/10/2024 Risk Assessment: Denies Substance Abuse Tobacco 11/10/2024 Risk Assessment: Denies Tobacco Use 11/10/2024 Tobacco Use: Former smoker, quit more Smokeless tobacco use: Never Type: Cigarettes Comment: quit - 08/17/2020 14:02 - Rosemarie Gutierrez LPN . Physical Examination Airway: Mallampati classification: II (soft palate, fauces, uvula visible). Respiratory: adequate air exchange. Cardiovascular: Regular rhythm. Plan [place] [employer] (ASA) physical status classification: Class II. Anesthetic Preoperative Plan: Anesthesia General. [facility] Comment on above: Result Comment: Elec tronically Signed By: Jefry Frost DO, Prosper Lopez\Date and Time Signed: 11/11/24 11:45 EST 11-10-2024 Hospital Discharge instructions Patient Education 11/10/2024 09:04:53 Post Op Patient Instructions - FT (CUSTOM) Follow Up Care 10/28/2024 13:42:17 With:Kirk CHAVEZ Address: [address], [address] [place] [phone]- Business (1) When:7 to 10 days Comments:Call for any problems. [facility] 11-10-2024 Note Patient Education - Text [facility] 11-10-2024 Note History and Physical Patient: CANDIDO HDEZ Age: 68 years Sex: Female : 1955 Associated Diagnoses: None Author: Kirk CHAVEZ MD Subjective no changes to H & P. [facility] Comment on above: Result Comment: Elec tronically Signed By: Kirk CHAVEZ MD\.br\Date and Time Signed: 11/10/24 07:34 EST 10-28-2024 Note General Surgery Offi ce/Clinic Note Chief Complaint consultation for lipoma HPI Staff 68 year old female presents on consultation from Dr. Musa for lipoma right upper back. Reports noting mass many years ago. Mass has been gradually increasing in size. Verbalized occasional soreness. History of Present Illness 68 yo female with h/o htn, hypercholesterolemia, referred for enlarging lipoma of right upper back, patient seen 2020 for other issue, did not want lipoma excision at that time; now increased in size, sore at times; has been there over 15 years; no skin changes, no imaging; no asa or NSAID use, no tobacco use. Review of Systems PHQ Score Initial Depression Screen Score: 0 SCORE ROS - Provider Constitutional: no fever, no sweats, no weight loss. Eyes: no glasses, no blurred vision, no visual loss. ENMT: no dentures, no hoarseness, no swallowing difficulties, no hearing loss, no ear infection(s), no nose bleeds. Cardiovascular: normal blood pressure, no chest pain, regular heartbeat, no heart murmur. Respiratory: no shortness of breath, no cough, no asthma, no wheezing. Gastrointestinal: no nausea, no vomiting, no diarrhea, no constipation, no blood in stool, no change in bowel habits, no abdominal pain, no hepatitis. Genitourinary: no kidney stones, no urine infection, no dysuria. Musculoskeletal: no pain, no weakness. Skin: no changing moles, no rash, yes skin lumps. Neurologic: no seizures, no epilepsy, no headache. Psychiatric: no emotional or psychiatric problem. Heme/Lymph: no bleeding problems, no anemia, no blood clots, no transfusions. Allergy/Immunologic: no swollen lymph nodes/glands, no IV drug abuse. Other: Additional ROS info: Except as noted in the above Review of Systems and in the History of Present Illness, all other systems have been reviewed and are negative or noncontributory. Physical Exam Vitals & Measurements HR: 72(Peripheral) RR: 16 BP: 168/80 HT: 67 in HT: 170 cm WT: 68.3 kg WT: 150.576 lb BMI: 23.63 ROS - Provider Constitutional: no fever, no sweats, no weight loss. Eyes: no glasses, no blurred vision, no visual loss. ENMT: no dentures, no hoarseness, no swallowing difficulties, no hearing loss, no ear infection(s), no nose bleeds. Cardiovascular: normal blood pressure, no chest pain, regular heartbeat, no heart murmur. Respiratory: no shortness of breath, no cough, no asthma, no wheezing. Gastrointestinal: no nausea, no vomiting, no diarrhea, no constipation, no blood in stool, no change in bowel habits, no abdominal pain, no hepatitis. Genitourinary: no kidney stones, no urine infection, no dysuria. Musculoskeletal: no pain, no weakness. Skin: no changing moles, no rash, 7 x 10 cm subcutaneous mass right upper back, no skin changes Neurologic: no seizures, no epilepsy, no headache. Psychiatric: no emotional or psychiatric problem. Heme/Lymph: no bleeding problems, no anemia, no blood clots, no transfusions. Allergy/Immunologic: no swollen lymph nodes/glands, no IV drug abuse. Other: Additional ROS info: Except as noted in the above Review of Systems and in the History of Present Illness, all other systems have been reviewed and are negative or noncontributory. Assessment/Plan 1. Lipoma of back (D17.1: Benign lipomatous neoplasm of skin and subcutaneous tissue of trunk) plan excisional biopsy under anesthesia, informed consent obtained. Ancef 2 gms IV prior to OR SCDs Follow-up No qualifying data available Problem List/Past Medical History Ongoing Anal polyp Anorectal skin tags Chronic venous insufficiency Estrogen deficiency External hemorrhoids Hypercholesteremia Hyperlipidemia type II Hypertension Lipoma of back Spondylosis, cervical Varicose veins without complication Historical HTN (hypertension) Migraine headache Procedure/Surgical History Polyp of anal verge (10/04/2020), Colonoscopy (04/05/2016), Appendectomy (1959), Endovenous laser ablation of varicose vein, LEXI BSO - Total abdominal hysterectomy and bilateral salpingo-oophorectomy. Medications lisinopril 5 mg Tab, 5 mg= 1 tab(s), Oral, Daily pravastatin 40 mg Tab, 40 mg= 1 tab(s), Oral, Daily Allergies No Known Allergies No Known Medication Allergies Social History Alcohol - Low Risk, 10/04/2020 Current. Wine. 1-2 times per month., 10/23/2024 Substance Abuse - Denies Substance Abuse, 08/17/2020 Never., 10/23/2024 Tobacco - Denies Tobacco Use, 09/13/2020 Former smoker, quit more than 30 days ago Tobacco Use:. Never Smokeless Tobacco Use:. Cigarettes, 10/28/2024 Family History Hypertension: Father. Primary malignant neoplasm of female breast: Mother. Stroke: Mother. Immunizations Vaccine Date Status influenza virus vaccine, inactivated 09/04/2024 Recorded SARS-CoV-2 (COVID-19) mRNA BNT-162b2 vax 08/02/2021 Recorded SARS-CoV-2 (COVID-19) mRNA BNT-162b2 vax 12/21/2020 Recorded SARS-CoV-2 (COVID-19) mRNA BNT-162b2 vax 11/29/2020 Luis (more content not included)... [facility] Comment on above: Result Comment: Elec tronically Signed By: GILLES VERNON, Kirk Espinoza\Date and Time Signed: 10/28/24 13:46 EST 03-23-2021 Note OPERATIVE NOTE OPERATION DATE: 03-23-21 ANESTHETIC:Propofol as per the anesthesia team. PREOPERATIVE DIAGNOSIS:History of colon polyps. POSTOPERATIVE DIAGNOSIS: Normal inspection of the colon into the cecum. PROCEDURE NAME:Colonoscopy to the cecum. PROCEDURE: The patient was placed in the left lateral decubitus position. The Olympus 180 colonoscope inserted into the rectum and advanced under direct vision through the entire colon to the cecum. No abnormalities were seen on complete inspection into the cecum. The endoscope was slowly withdrawn. FINAL DIAGNOSIS: Normal colonoscopy. RECOMMENDATION: Repeat colonoscopy in 5 years. cc:Dr. Musa. [facility] Signed and Approved by: DR ELSA DAVIDSON 03/30/2021 07:54:00 [facility] Evaluation + Plan note Future Appointments Appointment Date:10/29/2024 07:30:00 AM Scheduled Provider: Location:[facility] Appointment Type:Surgical [facility] FT Appointment Date:11/10/2024 08:00:00 AM Scheduled Provider: Location:[facility] Appointment Type:Surgery FT [facility] [place] Evaluation + Plan note Future Appointments Appointment Date:11/10/2024 08:00:00 AM Scheduled Provider: Location:[facility] Appointment Type:Surgery [facility] Evaluation note No assessment inform ation available [facility] Work Phone: Evaluation note [facility] Other Evaluation note No Information [facility] Other Evaluation note Diagnosis Onset Date Chronic venous insufficiency of lower extremity acute HTN (hypertension) acute Hypercholesterolemia acute Medicare annual wellness visit, subsequent noneactive Screening mammogram for breast cancer noneactive [facility] Work Phone: History general Narrative - ReportedNort arGEN-X Other History general Narrative - Reported* Type Description Date Medical History VV's Medical History Hypercholesterolemia Medical History Migraine headaches Medical History HTN Surgical History appendectomy Surgical History hysterectomy Surgical History EVLT right 08/2017 Surgical History EVLT left 10/2017 Hospitalization History appendectomy Hospitalization History hysterectomy Hospitalization History childbirth [employer] Other Hospital course Narrative No data available for this section [facility] [place] [facility] Discharge instructions No data available for this section [facility] General Surgery [place] Progress note No data available for this section [facility] [place] Summary Purpose Family History No Family History Records Found Relationship Condition Age at Onset Recorded Date/T graciela daughter Malignant neoplasm Unknown father Aneurysm Unknown Unknown Not Specified History of stroke Unknown natural son Unknown Relationship Condition Age at Onset Recorded Date/T graciela daughter Malignant neoplasm Unknown father Aneurysm Unknown Unknown mother History of stroke Unknown son Unknown Advance Directives No Advanced Directives Records Found Advance Directive Response Recorded Date/ Time Advance Directives No August 31, 2017 11:35am Advance Directive Response Recorded Date/ Time Advance Directives No August 31, 2017 12:35pm Chief Complaint and Reason for Visit Chief Complaint Screening Chief Complaint Wellness Reason for Visit Chronic venous insuf ficiency of lower extremity HTN (hypertension) Hypercholesterolemia Medicare annual wellness visit, subsequent Screening mammogram for breast cancer Chief Complaint 2 week cold, stuffy nose, headache Chief Complaint Admit Date Screening December 11, 2024 2:5 3pm Additional Source Comments INFORMATION SOURCE (unrecogn ized section and content) DATE CREATED AUTHOR 02/23/2022 [facility] DATE CREATED AUTHOR AUTHOR'S ORGANIZ ATION 10/30/2024 [facility] DATE CREATED AUTHOR AUTHOR'S ORGANIZ ATION 10/31/2024 [facility] DATE CREATED AUTHOR AUTHOR'S ORGANIZ ATION 11/14/2024 [facility] ical Center DATE CREATED AUTHOR AUTHOR'S ORGANIZ ATION 11/15/2024 [facility] DATE CREATED AUTHOR AUTHOR'S ORGANIZ ATION 11/21/2024 [facility] DATE CREATED AUTHOR AUTHOR'S ORGANIZ ATION 12/16/2024 [facility] Care Teams (unrecognized sec tion and content) Team Status: Inactive Member Role Status Dates Joel Musa DO Primary Care Provider, Referring Pr andrei Active Referral Self Attending Provider Active Team Status: Active Member Role Status Dates Joel Musa DO Primary Care Provider Active Team Status: Inactive Member Role Status Dates Joel Musa DO Primary Care Provide r, Attending Provider Active Start: March 20, 2024 End: March 20, 2024 Team Status: Inactive Member Role Status Dates Joel Musa DO Primary Care Provide r, Attending Provider Active Start: August 04, 2024 End: August 04, 2024 Team Status: Inactive Member Role Status Dates Joel Musa DO Primary Care Provide r, Referring Provider Active Start: December 11, 2024 End: December 11, 2024 Referral Self Attending Provider Active Start: [facility] 2024 End: December 11, 2024 Goals (unrecognized section and content) Goals may be documented in a n alternate sectionNo InformationNo InformationGoals may be documented in an alternate sectionGoals may be documented in an alternate section No data available for this section No data available for this section No data available for this section No data available for this sectionGoals may be documented in an alternate section REASON FOR VISIT (unrecogniz ed section and content) Lab ResultsFLU Shot FOR RECORDS PERTAINING TO PATIENTS WHO ARE OR HAVE BEEN ENROLLED IN A CHEMICAL DEPENDENCY/SUBSTANCEABUSE PROGRAM, SOME INFORMATION MAY BE OMITTED. This clinical summary was aggregated from multiple sources. Caution should be exercised in using it in the provision of clinical care. This summary normalizes information from multiple sources, and as a consequence, information in this document may materially change the coding, format and clinical context of patient data. In addition, data may be omitted in some cases. CLINICAL DECISIONS SHOULD BE BASED ON THE PRIMARY CLINICAL RECORDS. [employer] provides no warranty or guarantee of the accuracy or completeness of information in this document.
[2025-03-23 10:14] LABS: Basophils Percent Auto 0.7 % (0.2-2.0); Eosinophils Absolute Auto 0.1 10^3/uL (0.0-0.7); Eosinophils Percent Auto 1.9 % (0.9-7.0); Hematocrit 38.9 % (36.0-48.0); Hemoglobin 12.8 g/dL (12.0-16.0); Immature Granulocytes Abs Auto 0.01 10^3/uL (0.00-0.03); Immature Granulocytes Pct Auto 0.2 % (0.0-0.5); Lymphocytes Absolute Auto 1.3 10^3/uL (1.2-3.8); Lymphocytes Percent Auto 21.8 % (20.5-60.0); Mean Corpuscular HGB Conc 32.9 g/dL (29.9-35.2); Mean Corpuscular Hemoglobin 29.6 pg (26.7-34.0); Mean Platelet Volume 9.2 fL (9.5-13.5); Monocytes Absolute Auto 0.5 10^3/uL (0.3-0.8); Monocytes Percent Auto 8.2 % (1.7-12.0); Neutrophils Absolute Auto 3.9 10^3/uL (1.4-6.5); Neutrophils Percent Auto 67.2 % (43.0-75.0); Platelet Count 267 10^3/uL (150-450); Red Blood Count 4.32 10^6/uL (4.20-5.40); Red Cell Distribution Width 13.2 % (11.0-15.0); White Blood Count 5.8 10^3/uL (4.0-11.0)
[2025-03-23 10:42] LABS: Alanine Aminotransferase 27 U/L (14-59); Albumin Globulin Ratio 1.1; Albumin Level 3.8 g/dL (3.4-5.0); Alkaline Phosphatase 69 U/L (46-116); Anion Gap 15.3; Aspartate Amino Transferase 23 U/L (15-37); BUN Creatinine Ratio 28.8; Bilirubin Total 0.6 mg/dL (0.2-1.0); Calcium 9.3 mg/dL (8.5-10.1); Carbon Dioxide 27.9 mmol/L (21.0-32.0); Chloride 104 mmol/L (98-107); Cholesterol 204 mg/dL (<=200); Estimated GFR (African America >60 (>=60 mL/min/1.73m^2); Estimated GFR (Non-African Ame >60 (>=60 mL/min/1.73m^2); Globulin 3.4 g/dL; Glucose 92 mg/dL (74-106); HDL Cholesterol 68 mg/dL (40-60); Potassium 4.2 mmol/L (3.5-5.1); Sodium 143 mmol/L (136-145); Total Protein 7.2 g/dL (6.4-8.2); Triglycerides 97 mg/dL (<=150); VLDL CHOLESTEROL 19.4 mg/dL
== END 2025-03-23 09:18 | disposition home or self-care (01) ==
LOC: LAB 09:24
PROVIDERS: PCP Internal Medicine; Visit Provider Internal Medicine
DX: E78.00 Pure hypercholesterolemia, unspecified (principal); I10 Essential (primary) hypertension; I87.2 Venous insufficiency (chronic) (peripheral); Z79.899 Other long term (current) drug therapy
CPT/HCPCS: 36415; 80053; 80061; 85025